=== PATIENT | female | born 1955 | race Caucasian/White ===

== ENCOUNTER 2023-12-30 11:20 | Outpatient (OUT) | payer MEDICARE, SELFPAY ==
--- NOTE | 2023-12-30 11:23 | MM_ITS ---
Patient Name: ALEXIA MILTON MR#: [id number] : 1955 Exam Date: 12/30/2023 Ordering Doctor: DR ROBERT OLVERA M.D. RADIOLOGY REPORT PROCEDURE: MM TOMOSYNTHESIS SCREENING BI COMPARISON: MG MAMM SCREEN TERRIE W CAD, 08/26/2020. MG MAMM SCREEN 3D TERRIE CAD, 12/10/2021. INDICATIONS: Screening Calculator Name NCI Breast Cancer Risk Assessment Tool 5 Year Breast Cancer Risk 1.20% Lifetime Breast Cancer Risk 4.40% Personal Breast Cancer No Personal Ovarian Cancer No Treatments None Family Cancers Grandmother-paternal with breast cancer at age 60; Father with esophegeal cancer at age 56. LOCATION: [facility] BREAST COMPOSITION: The breasts are almost entirely fatty. FINDINGS: DIAGNOSTIC CATEGORY 2--BENIGN FINDING. NO CHANGE FROM COMPARISON. Scattered benign-appearing nodules are present. Scattered benign-appearing calcifications are present. Scattered benign-appearing lymph nodes are present. RIGHT BREAST: No significant suspicious finding. LEFT BREAST: No significant suspicious finding. RECOMMENDATIONS: ROUTINE MAMMOGRAM AND CLINICAL EVALUATION IN 12 MONTHS. PLEASE NOTE: A NORMAL MAMMOGRAM DOES NOT EXCLUDE THE POSSIBILITY OF BREAST CANCER. A CLINICALLY SUSPICIOUS PALPABLE LUMP SHOULD BE BIOPSIED. Dictated by: Jhontaan Ravi MD on 12/30/2023 at 14:18 Approved by: Jhonatan Ravi MD on 12/30/2023 at 14:19
== END 2023-12-30 11:21 | disposition home or self-care (01) ==
LOC: MAMMO 11:20
PROVIDERS: PCP Internal Medicine; Visit Provider Internal Medicine
DX: Z12.31 Encounter for screening mammogram for malignant neoplasm of breast (principal); Z80.3 Family history of malignant neoplasm of breast; Z80.8 Family history of malignant neoplasm of other organs or systems
CPT/HCPCS: 77063; 77067

== ENCOUNTER 2025-04-17 09:53 | Outpatient (OUT) | payer MEDICARE, SELFPAY ==
--- OUTSIDE RECORDS SUMMARY | 2023-11-10 10:30 | XMS_ITS ---
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 * Medical History: Objective: * Vitals: Assessment: Plan: * Treatment: * Billing Information: * Visit Code: * Procedure Codes: * Electronic signature of Bishnu Garza DDS on 04/17/2025 at 09:57 AM EDT Sign off status: Pending * Provider: Dilan Garza DDS Date: 11/10/2023 Generated for Ludin glasgow/Mariya/eTcarleenitting on: 04/17/2025 09:57 AM EDT
--- OUTSIDE RECORDS SUMMARY | 2025-04-12 10:00 | XMS_ITS | Encounter Summary ---
Author Organization [facility] Address [address] [place] [address] Care Team Providers Care Electronic Scale Subassembler Name Role Phone Grayson Albert MD Primary Care Provider [phone] Grayson Albert MD Unavailable [phone] Meka Cardenas PATRICK Unavailable Reason for Referral * Rehabilitation - Outpatient (Routine) - Authorized Specialty Diagnoses / Procedures Referred By Contac t Referred To Contact Physical Therapy Diagnoses Acute pain of left shoulder Procedures ME OFFICE/OUTPATIENT NEW HIGH MDM 60 MINUTES Radha Main NP [address] [facility] [address] [place] [address] Phone: tel: fax: Corry Hutchinson PT Referral ID Status Reason Start Date Expiration Date Visits Requested Visits Authorized [id number] Authorized Specialty Services Required 04/12/2025 10/09/2025 10 10 * Consultation (Routine) - Closed Specialty Diagnoses / Procedures Referred By Contac t Referred To Contact Dermatology Diagnoses Screening for malignant neoplasm of skin Procedures ME OFFICE/OUTPATIENT NEW [facility] MDM 60 MINUTES Radha Main NP [address] [facility] [address] [place] [address] Phone: tel: fax: Terese Garcia MD [address] [place] [address] Phone: tel: fax: Referral ID Status Reason Start Date Expiration Date V isits Requested Visits Authorized [id number] Closed Specialty Services Required 04/12/2025 10/09/2025 1 1 Encounter Details Date Type Department Care Team (Late st Contact Info) Description 04/12/2025 10:00 AM EDT Office Visit [facility] [address] [facility] [address] [place] [address] Radha Main NP 112 [facility] [address] [place] [address] Medicare annual wellness visit, subsequent (Primary Dx); Anxiety disorder, unspecified type; Estrogen deficiency; Thyroid disorder screening; Vitamin D deficiency; Type 2 diabetes mellitus with other specified complication, with long-term current use of insulin (HCC); Hypercholesterolemia ; Encounter for other screening for malignant neoplasm of breast; Acute pain of left shoulder; Screening for malignant neoplasm of skin; Pulmonary emphysema, unspecified emphysema type (HCC); Arthritis of left knee; Lumbosacral spondylosis without myelopathy; Severe obesity (BMI 35.0-39.9) with comorbidity (CMS-HCC); Depression with anxiety; Menopausal and postmenopausal disorder Social History Tobacco Use Types Packs/Day Years Used Date Smoking Tobacco: Former Cigarettes 0.5 10 Q uit: 11/07/2022 Smokeless Tobacco: Never Tobacco Cessation:Counseling Given: Yes Alcohol Use Standard Drinks/Week Comments Never 0 (1 standard drink = 0.6 oz pur e alcohol) caffeine: Yes, coffee B1300 Health Literacy Answer Date Recor ded How often do you need to hav e someone help you when you read instructions, pamphlets, or other written material from your doctor or pharmacy? Never 04/11/2025 Humiliation, Afraid, Rape, and Kick questionnair e Answer Date Recorded Within the last year, have y ou been afraid of your partner or ex-partner? No 04/11/2025 Within the last year, have y ou been humiliated or emotionally abused in other ways by your partner or ex-partner? No Within the last year, have y ou been kicked, hit, slapped, or otherwise physically hurt by your partner or ex-partner? No 04/11/2025 Within the last year, have y ou been raped or forced to have any kind of sexual activity by your partner or ex-partner? No 04/11/2025 Social Connection and Isolation Panel [NHANES] A nswer Date Recorded In a typical week, how many times do you talk on the phone with family, friends, or neighbors? Twice a week 04/11/2025 How often do you get togethe r with friends or relatives? Patient declined 04/11/2025 Attends [employer] Services Not on file 04/11 Do you belong to any clubs o r organizations such as buddhism groups, unions, fraternal or athletic groups, or school groups? No 04/11/2025 How often do you attend meet ings of the clubs or organizations you belong to? Patient declined 04/11/2025 Are you , , di vorced, , never , or living with a partner? 04/11/2025 AUDIT-C Answer Date Recorded Q1: How often do you have a drink containing alcohol? Never 04/11/2025 Q2: How many drinks containi ng alcohol do you have on a typical day when you are drinking? Patient does not drink Q3: How often do you have si x or more drinks on one occasion? Never 04/11/2025 Overall Financial Resource Strain (CARDIA) Answe r Date Recorded How hard is it for you to pa y for the very basics like food, housing, medical care, and heating? Not very hard 04/11/2025 PHQ-2 Answer Date Recorded Patient Health Questionnaire-2 Score 4 04/12/2025 [facility] - Occupational Stress Questionnaire Answer Date Recorded Do you feel stress - tense, restless, nervous, or anxious, or unable to sleep at night because your mind is troubled all the time - these days? Only a little 04/11/2025 Exercise Vital Sign Answer Date Recorde d On average, how many days pe r week do you engage in moderate to strenuous exercise (like a brisk walk)? 4 days 04/11/2025 On average, how many minutes do you engage in exercise at this level? 30 min 04/11/2025 Hunger Vital Sign Answer Date Recorded Within the past 12 months, y ou worried that your food would run out before you got the money to buy more. Sometimes true Within the past 12 months, t he food you bought just didn't last and you didn't have money to get more. Never true 10/2024 PRAPARE - Transportation Answer Date Re corded In the past 12 months, has l ack of transportation kept you from medical appointments or from getting medications? No 10/2024 In the past 12 months, has l ack of transportation kept you from meetings, work, or from getting things needed for daily living? No 04/11/2025 Housing Stability Vital Sign Answer Antonio e Recorded In the last 12 months, was t here a time when you were not able to pay the mortgage or rent on time? No 12/30/2023 In the last 12 months, how many places have you lived? 1 12/30/2023 In the last 12 months, was t here a time when you did not have a steady place to sleep or slept in a jail (including now)? No 12/30/2023 Housing Stability Vital Sign Answer Antonio e Recorded In the last 12 months, was t here a time when you were not able to pay the mortgage or rent on time? No 04/11/2025 Number of Times Moved in the Last Year Not on fi le 04/11/2025 At any time in the past 12 m [facility], were you homeless or living in a jail (including now)? No 04/11/2025 Comments Unknown Sex and Gender Information Value Date Recorded Sex Assigned at Not on file Legal Sex Female 7:05 PM EDT Gender Identity Not on file Sexual Orientation Not on file documented as of this encounter Last Filed Vital Signs Vital Sign Reading Time Taken Comments Blood Pressure 122/72 04/12/2025 10:12 AM EDT Pulse 87 04/12/2025 10:12 AM EDT Temperature - - Respiratory Rate 16 04/12/2025 10:12 AM EDT Oxygen Saturation 98% 04/12/2025 10:12 AM EDT Inhaled Oxygen Concentration - - Weight 93.9 kg (207 lb) 04/12/2025 10:12 AM EDT Height 154.9 cm (5' 1 ) 04/12/2025 10:12 AM EDT Body Mass Index 39.11 04/12/2025 10:12 AM EDT documented in this encounter Functional Status * Over the past 2 weeks, how often have you been bothered by any of the following problems? Question Answer Date of Assessment Author Little interest or pleasure in doing things More than half the days 04/12/2025 10:02 AM IZZY SCOTT Feeling down, depressed, or hopeless More than half the days 04/12/2025 10:02 AM IZZY SCOTT Patient Health Questionnaire-2 Score 4 04/12/2025 10:02 AM IZZY SCOTT * Question Answer Date of Assessment Author Trouble falling or staying asleep, or sleeping too much More than half the days 04/12/2025 10:02 AM IZZY SCOTT Feeling tired or having little energy More than half the days 04/12/2025 10:02 AM IZZY SCOTT Poor appetite or overeating Several days 04/12/2025 10 :02 AM IZZY SCOTT Feeling bad about yourself - or that you are a failure or have let yourself or your family down Several days 04/12/2025 10:02 AM IZZY SCOTT Trouble concentrating on things, such as reading the newspaper or watching television More than half the days 04/12/2025 10:02 AM IZZY SCOTT Moving or speaking so slowly that other people could have noticed? Or the opposite - being so fidgety or restless that you have been moving around a lot more than usual. Several days 04/12/2025 10:02 AM IZZY SCOTT Thoughts that you would be better off or hurting yourself in some way Not at all 04/12/2025 10:02 AM IZZY SCOTT Patient Health Questionnaire-9 Score 13 04/12/2025 10:02 AM IZZY SCOTT * If you checked off any problems on this questionnaire so far, Question Answer Date of Assessment Author How difficult have these problems made it for you to do your work, take care of things at home, or get along with other people? Somewhat difficult 04/12/2025 10:02 AM IZZY SCOTT documented as of this encounter Patient Instructions * Patient Instructions* Radha Main NP - 04/12/2025 10:00 AM EDT Referral to Dermatology for a preventative skin check. Referral to therapy for left shoulder pain. Celexa increased today. documented in this encounter Progress Notes * Radha Main NP - 04/12/2025 10:00 AM EDT Images from the original note were not included. Subjective : Chief Complaint: Jovanna Aceves is an 69 y.o. female here for an annual wellness visit. I have reviewed and reconciled the history and medication list with the patient today. Current Outpatient Medications Medication Sig Dispense Refill albuterol HFA (Ventolin HFA) 90 mcg/act inhaler Inhale 2 puffs every 4 (four) hours if needed for wheezing 17 g 11 aspirin 81 MG EC tablet Take 81 mg by mouth in the morning. Fsdlhkw-Qiqcjikiqaa-Jaeondlczz (Breztri Aerosphere) 160-9-4.8 MCG/ACT aerosol Inhale 2 puffs in themorning and 2 puffs before bedtime. 10.7 g 11 citalopram (CeleXA) 20 MG tablet Take 1 tablet (20 mg) by mouth Daily 30 tablet 1 glucose blood (Accu-Chek Zoe Plus) test strip 1 each by Other route in the morning and 1 each in the evening and 1 each before bedtime. 300 each 2 insulin aspart (NovoLOG FLEXPEN) 100 UNIT/ML pen Inject 15 Units under the skin in the morning and 15 Units in the evening. Inject with meals. Per sliding scale. 27 mL 3 insulin glargine (Toujeo Max Solostar, 2 unit dial,) 300 UNIT/ML injection Inject 45 Units under the skin at bedtime Pt is to have 44 units instead of 45 units as this is a 2 unit dial. The computer sytem will not allow me to correct 6 mL 12 rosuvastatin (Crestor) 20 MG tablet TAKE 1 TABLET BY MOUTH EVERY DAY 100 tablet 3 tiZANidine (Zanaflex) 4 MG tablet Take 1 tablet (4 mg) by mouth in the morning and 1 tablet (4 mg) in the evening and 1 tablet (4 mg) before bedtime. 30 tablet 1 No current facility-administered medications for this visit. Review of Systems Constitutional: Negative. HENT: Negative. Eyes: Negative. Respiratory: Negative. Cardiovascular: Negative. Gastrointestinal: Negative. Genitourinary: Negative. Musculoskeletal: Positive for arthralgias (left shoulder) and joint swelling. Skin: She has multiple age spots and other spots she wonders about. Asking for a dermatology consult today. Neurological: Negative. Psychiatric/Behavioral: The patient is nervous/anxious. Hematological: Negative. Endocrine: Negative. Allergic/Immunologic: Negative. List of current healthcare providers: Patient Care Team: Grayson Albert MD as PCP - General (Internal Medicine) Grayson Albert MD as PCP - ACO Hira Cardenas LPN Medicare Annual Visit Over the past 2 weeks, how often have you been bothered by any of the following problems? Little interest or pleasure in doing things: More than half the days Feeling down, depressed, or hopeless: More than half the days Patient Health Questionnaire-2 Score: 4 Over the past 2 weeks, how often have you been bothered by any of the following problems? Trouble falling or staying asleep, or sleeping too much: More than half the days Feeling tired or having little energy: More than half the days Poor appetite or overeating: Several days Feeling bad about yourself - or that you are a failure or have let yourself or your family down: Several days Trouble concentrating on things, such as reading the newspaper or watching television: More than half the days Moving or speaking so slowly that other people could have noticed? Or the opposite - being so fidgety or restless that you have been moving around a lot more than usual.: Several days Thoughts that you would be better off or hurting yourself in some way: Not at all Patient Health Questionnaire-9 Score: 13 Merchant Fall Risk History of Falling, Immediate or Within 3 Months: No Secondary Diagnosis: (Patient-Rptd) (P) No Intravenous Therapy/Heparin Lock: (Patient-Rptd) (P) No Health Risk Assessment Form Do you need help eating, bathing, using the toilet, dressing, or getting around your home?: No Can you prepare your own meals?: Yes Can you do your own housework without help?: Yes Can you shop for groceries or clothes without help?: Yes Do you exercise for about 20 minutes 3 or more days a week?: Yes How confident are you that you can control and manage most of your health problems?: Very confident Can you mange your money, credit cards and accounts, pay bills and taxes?: Yes Cognitive Screening Three Word Registration: Banana, [place], Chair Clock Drawing: Normal Clock - 2 Three Word Recall: All 3 words correct - 3 Total Score (0-5 Points): 5 Pain Assessment Pain Score: 5 - Moderate pain Advance Care Planning Do you have a living will?: Yes Do you have a medical power of web site designer?: Yes Who is your medical power of web site designer?: Jacky Ariza Objective : BP 122/72 Pulse 87 Resp 16 Ht 5' 1 Wt 207 lb SpO2 98% BMI 39.11 kg/m?? No results found. Physical Exam Vitals reviewed. Constitutional: Appearance: Normal appearance. HENT: Head: Normocephalic and atraumatic. Right Ear: Tympanic membrane, ear canal and external ear normal. Left Ear: Tympanic membrane, ear canal and external ear normal. Nose: Nose normal. Mouth/Throat: Mouth: Mucous membranes are moist. Pharynx: Oropharynx is clear. Eyes: Extraocular Movements: Extraocular movements intact. Conjunctiva/sclera: Conjunctivae normal. Pupils: Pupils are equal, round, and reactive to light. Cardiovascular: Rate and Rhythm: Normal rate and regular rhythm. Pulses: Normal pulses. Heart sounds: Normal heart sounds. Pulmonary: Effort: Pulmonary effort is normal. Breath sounds: Normal breath sounds. Abdominal: General: Bowel sounds are normal. Musculoskeletal: General: Tenderness (left shoulder tenderness, mild swelling, decreased ROM) present. Cervical back: Normal range of motion and neck supple. Skin: General: Skin is warm and dry. Comments: Scattered age spots over body Neurological: General: No focal deficit present. Mental Status: She is alert and oriented to person, place, and time. Psychiatric: Mood and Affect: Mood normal. Behavior: Behavior normal. Judgment: Judgment normal. Comments: Feels anxious, crying for no reason Assessment/Plan : The following health maintenance schedule was reviewed with the patient and provided in printed form in the after visit summary: Health Maintenance Topic Date Due Pneumococcal Vaccine: 65+ Years (1 of 2 - PCV) Never done Colorectal Cancer Screening 09/26/2022 Mammogram 12/29/2024 Diabetes: Urine Protein Screening 03/15/2025 Medicare Annual Wellness (AWV) 03/22/2025 Influenza Vaccine (1) 04/09/2025 Diabetes: Hemoglobin A1C 07/12/2025 Diabetes: Retinopathy Screening 05/23/2026 Advance Care Planning Orders Placed This Encounter Procedures Bilateral screening mammogram with tomosynthesis [place] Standing Status: Future Expected Date: 04/12/2025 Expiration Date: 06/12/2026 Reason for exam:: screening for breast cancer DEXA bone density Constantin Standing Status: Future Expected Date: 04/12/2025 Expiration Date: 04/12/2026 Reason for exam:: Screening XR shoulder 2+ views left Standing Status: Future Expected Date: 04/12/2025 Expiration Date: 04/12/2026 Reason for exam:: left shoulder pain, limited ROM dt pain Comprehensive metabolic panel Standing Status: Future Number of Occurrences: 1 Expected Date: 04/12/2025 Expiration Date: 04/12/2026 Print requisition?: No CBC and differential Standing Status: Future Number of Occurrences: 1 Expected Date: 04/12/2025 Expiration Date: 04/12/2026 Print requisition?: No Lipid panel Standing Status: Future Number of Occurrences: 1 Expected Date: 04/12/2025 Expiration Date: 04/12/2026 Microalbumin / creatinine urine ratio Standing Status: Future Expected Date: 04/12/2025 Expiration Date: 04/12/2026 Print requisition?: No Vitamin D 25 hydroxy Total Standing Status: Future Number of Occurrences: 1 Expected Date: 04/12/2025 Expiration Date: 04/12/2026 Print requisition?: No TSH Standing Status: Future Number of Occurrences: 1 Expected Date: 04/12/2025 Expiration Date: 04/12/2026 Print requisition?: No Ambulatory referral to Dermatology Patient would like a skin check, family history of skin cancer. Standing Status: Future Expected Date: 04/12/2025 Expiration Date: 10/10/2025 Referral Priority: Routine Referral Type: Consultation Referral Reason: Specialty Services Required Referred to Provider: Terese Garcia MD Requested Specialty: Dermatology Number of Visits Requested: 1 Ambulatory referral to Physical Therapy Left shoulder pain Standing Status: Future Expected Date: 04/12/2025 Expiration Date: 10/10/2025 Referral Priority: Routine Referral Type: Rehabilitation - Outpatient Referral Reason: Specialty Services Required Referred to Provider: Corry Hutchinson PT Requested Specialty: Physical Therapy Number of Visits Requested: 1 POCT glycosylated hemoglobin (Hb A1C) docked device 1. Medicare annual wellness visit, subsequent (Primary) This pt presents for her medicare wellness visit today. 2. Anxiety disorder, unspecified type The pt reports today that she has been having episodes of crying for no reason and feels anxious daily. Discussed increasing her citalopram and she is in agreement with this plan. Will have her follow up in 1 month to ensure effectiveness of the medication increase. - citalopram (CeleXA) 20 MG tablet; Take 1 tablet (20 mg) by mouth Daily Dispense: 30 tablet; Refill: 1 3. Estrogen deficiency The pt states she was du to have a dexa previously but was not able to get it done. Dexa scan ordered today. - DEXA bone density; Future 4. Thyroid disorder screening 03/15/24 TSH W/REFLEX TO FT4 0.40 - 4.50 mIU/L 1.18 - TSH; Future - TSH 5. Vitamin D deficiency - Comprehensive metabolic panel; Future - CBC and differential; Future - Vitamin D 25 hydroxy Total; Future - Comprehensive metabolic panel - CBC and differential - Vitamin D 25 hydroxy Total 6. Type 2 diabetes mellitus with other specified complication, with long-term current use of insulin (HCC) Her A1c results are discussed at her visit today. Previous was at 7.5. Continues current medication, no changes. Insulin aspart continues as ordered, Toujeo insulin continues as ordered. 04/12/25 Hemoglobin A1C 6.9 - Comprehensive metabolic panel; Future - CBC and differential; Future - Microalbumin / creatinine urine ratio; Future - POCT glycosylated hemoglobin (Hb A1C) docked device - Comprehensive metabolic panel - CBC and differential 7. Hypercholesterolemia Rosuvastatin continues as ordered 03/15/24 CHOLESTEROL, TOTAL <200 mg/dL 172 277 High HDL CHOLESTEROL > OR = 50 mg/dL 56 63 TRIGLYCERIDES <150 mg/dL 113 98 LDL CHOLESTEROL mg/dL (calc) 95 192 High CM Comment: Reference range: <100 Desirable range <100 mg/dL for primary prevention; <70 mg/dL for patients with CHD or diabetic patients with > or = 2 CHD risk factors. LDL-C is now calculated using the Alphonso calculation, which is a validated novel method providing better accuracy than the Friedewald equation in the estimation of LDL-C. Ashwin HERNANDEZ et al. SARAH. 2013;310(19): 3317-3181 (http://Yelp.MetaIntell/faq/HJU351) CHOL/HDLC RATIO <5.0 (calc) 3.1 4.4 NON HDL CHOLESTEROL <130 mg/dL (calc) 116 - Comprehensive metabolic panel; Future - CBC and differential; Future - Lipid panel; Future - Comprehensive metabolic panel - CBC and differential - Lipid panel 8. Encounter for other screening for malignant neoplasm of breast Mammogram order sent. - Bilateral screening mammogram with tomosynthesis; Future 9. Acute pain of left shoulder Discussed getting an xray of the left shoulder dt increased pain and discomfort, decreased ROM. Shereports that she is in agreement with this plan. Referral to therapy sent today. - XR shoulder 2+ views left; Future - Ambulatory referral to Physical Therapy; Future Tizanidine continues prn 10. Screening for malignant neoplasm of skin - Ambulatory referral to Dermatology; Future 11. Pulmonary emphysema, unspecified emphysema type (HCC) Stable. albuterol HFA (Ventolin HFA) 90 mcg/act inhaler 2 puff, Every 4 hours PRN Wbprvuz-Ukwmttoucvt-Ukwqqnmstw (Breztri Aerosphere) 160-9-4.8 MCG/ACT aerosol 12. Arthritis of left knee Stable 13. Lumbosacral spondylosis without myelopathy Stable 14. Severe obesity (BMI 35.0-39.9) with comorbidity (CMS-HCC) Stable 15. Depression with anxiety Celexa increased tod 20 mg daily today. 16. Menopausal and postmenopausal disorder Stable.Continue Celexa as ordered. Electronically signed by Radha Main NP on April 12, 2025 documented in this encounter Plan of Treatment Upcoming Encounters Date Type Department Care Team (Late st Contact Info) Description 04/25/2025 11:30 AM EDT Evaluation [facility] [address] [facility] [address] [place] [id number] Jasper Corry, PT 04/27/2025 10:30 AM EDT Treatment [facility] [address] [place] [address] Pedro Turcios, SHOE PULLER 04/30/2025 10:30 AM EDT Treatment [facility] [address] [place] [address] Pedro Turcios, SHOE PULLER 05/02/2025 10:30 AM EDT Treatment [facility] [address] [place] [address] Pedro Turcios, SHOE PULLER 05/17/2025 10:00 AM EDT Office Visit [facility] [address] [place] [address] Radha Main, ERROL [address] [place] [address] Scheduled Orders Name Type Priority Associated Diagnoses Orde r Schedule Bilateral screening mammogram with tomosynthesis Imaging Routine Encounter for other screening for malignant neoplasm of breast Expected: 04/12/2025, Expires: 06/12/2026 DEXA bone density Imaging Routine Estrogen deficiency Expected: 04/12/2025 (Approximate), Expires: 04/12/2026 Comprehensive metabolic panel Lab Routine Vitamin D deficiency Type 2 diabetes mellitus with other specified complication, with long-term current use of insulin (HCC) Hypercholesterolemia Expected: 04/12/2025 (Approximate), Expires: 04/12/2026 CBC and differential Lab Routine Vitamin D deficiency Type 2 diabetes mellitus with other specified complication, with long-term current use of insulin (HCC) Hypercholesterolemia Expected: 04/12/2025 (Approximate), Expires: 04/12/2026 Lipid panel Lab Routine Hypercholesterolemia Expected: 04/12/2025 (Approximate), Expires: 04/12/2026 Microalbumin / creatinine urine ratio Lab Routine Type 2 diabetes mellitus with other specified complication, with long-term current use of insulin (HCC) Expected: 04/12/2025 (Approximate), Expires: 04/12/2026 Vitamin D 25 hydroxy Total Lab Routine Vitamin D deficiency Expected: 04/12/2025 (Approximate), Expires: 04/12/2026 XR shoulder 2+ views left Imaging Routine Acute pain of left shoulder Expected: 04/12/2025 (Approximate), Expires: 04/12/2026 TSH Lab Routine Thyroid disorder screening Expected: 04/12/2025 (Approximate), Expires: 04/12/2026 Scheduled Referrals Name Type Priority Associated Diagnoses Order Schedule Ambulatory referral to Dermatology Outpatient Referral Routine Screening for malignant neoplasm of skin Expected: 04/12/2025 (Approximate), Expires: 10/10/2025 Ambulatory referral to Physical Therapy Outpatient Referral Routine Acute pain of left shoulder Expected: 04/12/2025 (Approximate), Expires: 10/10/2025 documented as of this encounter Procedures Procedure Name Priority Date/Time Associated Diagnosis Comments POCT GLYCOSYLATED HEMOGLOBIN (HGB A1C) Routine 04/12/2025 10:24 AM EDT Type 2 diabetes mellitus with other specified complication, with long-term current use of insulin (HCC) documented in this encounter Results * (ABNORMAL) POCT glycosylated hemoglobin (Hb A1C) docked device (04/12/2025 10:24 AM EDT) Hemoglobin A1C 6.9 Blood Venous blood specimen / Unknown 04/12/2025 10:24 AM EDT Radha Main NP POINT OF CARE TEST ENTER/EDIT OR DERABLES Final Result documented in this encounter Visit Diagnoses Diagnosis Medicare annual wellness visit, subsequent- Primary Anxiety disorder, unspecified type Estrogen deficiency Other ovarian failure Thyroid disorder screening Screening for thyroid disorder Vitamin D deficiency Type 2 diabetes mellitus with other specified complication, with long-term current use of insulin (HCC) Hypercholesterolemia Pure hypercholesterolemia Encounter for other screening for malignant neoplasm of breast Acute pain of left shoulder Screening for malignant neoplasm of skin Screening for malignant neoplasm of the skin Pulmonary emphysema, unspecified emphysema type (HCC) Arthritis of left knee Lumbosacral spondylosis without myelopathy Severe obesity (BMI 35.0-39.9) with comorbidity ([facility]) Depression with anxiety Dysthymic disorder Menopausal and postmenopausal disorder Unspecified menopausal and postmenopausal disorder documented in this encounter Additional Health Concerns Assessment Noted Time PHQ-9 Depression Total Score: 13 025 10:02 AM EDT documented as of this encounter Care Teams Electronic Scale Subassembler Relationship Specialty Start Date End Date Grayson Albert MD [address] [facility] [address] [place] [address] PCP - General Internal Medicine 01/07/23 Grayson Albert MD [address] [facility] [address] [place] [address] PCP - ACO Reach 10/08/23 Meka Cardenas LPN [address] [facility] [address] [place] [address] 10/31/24 documented as of this encounter
--- OUTSIDE RECORDS SUMMARY | 2025-04-17 09:57 | XMS_ITS | Encounter Summary ---
Author Organization [facility] Address [address] [facility] [place] [address] Care Team Providers Care Mill Control Operator Name Role Phone Grayson Albert MD Primary Care Provider [phone] Grayson Albert MD Unavailable [phone] Wednesday, Yola CONTACT LENS MOLDER Unavailable [phone] Arceo RN Unavailable [phone] [place] CONTACT LENS MOLDER Unavailable Encounter Details Date Type Department Care Team (Late st Contact Info) Description 02/24/2024 Abstract [facility] [place] [facility] [address] [facility] [address] [place] [id number] Grayson Albert MD [address] [facility] [address] [place], [place] [id number] Social History Tobacco Use Types Packs/Day Years Used Date Smoking Tobacco: Former Cigarettes Q uit: 11/07/2022 Smokeless Tobacco: Never Alcohol Use Standard Drinks/Week Comments Never 0 (1 standard drink = 0.6 oz pur e alcohol) caffeine: Yes, coffee B1300 Health Literacy Answer Date Recor ded How often do you need to hav e someone help you when you read instructions, pamphlets, or other written material from your doctor or pharmacy? Never 02/21/2024 Humiliation, Afraid, Rape, and Kick questionnair e Answer Date Recorded Within the last year, have y ou been afraid of your partner or ex-partner? No 02/21/2024 Within the last year, have y ou been humiliated or emotionally abused in other ways by your partner or ex-partner? No Within the last year, have y ou been kicked, hit, slapped, or otherwise physically hurt by your partner or ex-partner? No 02/21/2024 Within the last year, have y ou been raped or forced to have any kind of sexual activity by your partner or ex-partner? No 02/21/2024 Social Connection and Isolat ion Panel [NHANES] Answer Date Recorded In a typical week, how many times do you talk on the phone with family, friends, or neighbors? More than three times a week 02/21/2024 How often do you get togethe r with friends or relatives? Once a week 02/21/2024 How often do you attend chur or presybeterian services? More than 4 times per year 02/21/2024 Do you belong to any clubs o r organizations such as temple groups, unions, fraternal or athletic groups, or school groups? Yes 02/21/2024 How often do you attend meet ings of the clubs or organizations you belong to? More than 4 times per year 02/21/2024 Are you , , di vorced, , never , or living with a partner? 02/21/2024 AUDIT-C Answer Date Recorded Q1: How often do you have a drink containing alcohol? Never 02/21/2024 Q2: How many drinks containi ng alcohol do you have on a typical day when you are drinking? Patient does not drink Q3: How often do you have si x or more drinks on one occasion? Never 02/21/2024 Overall Financial Resource Strain (CARDIA) Answe r Date Recorded How hard is it for you to pa y for the very basics like food, housing, medical care, and heating? Somewhat hard 02/21/2024 [facility] [place] of Occupat ional Health - Occupational Stress Questionnaire Answer Date Recorded Do you feel stress - tense, restless, nervous, or anxious, or unable to sleep at night because your mind is troubled all the time - these days? Not at all 02/21/2024 Exercise Vital Sign Answer Date Recorde d On average, how many days pe r week do you engage in moderate to strenuous exercise (like a brisk walk)? 0 days 02/21/2024 On average, how many minutes do you engage in exercise at this level? 0 min 02/21/2024 Hunger Vital Sign Answer Date Recorded Within the past 12 months, y ou worried that your food would run out before you got the money to buy more. Never true 02/21/20 24 Within the past 12 months, t he food you bought just didn't last and you didn't have money to get more. Never true 02/21/2024 PRAPARE - Transportation Answer Date Re corded In the past 12 months, has l ack of transportation kept you from medical appointments or from getting medications? No 02/06 In the past 12 months, has l ack of transportation kept you from meetings, work, or from getting things needed for daily living? No 02/21/2024 Housing Stability Vital Sign Answer Antonio e [...] place to sleep or slept in a alf (including now)? No 12/30/2023 Housing Stability Vital Sign Answer Antonio e Recorded In the last 12 months, was t here a time when you were not able to pay the mortgage or rent on time? No 02/21/2024 In the past 12 months, how m any times have you moved where you were living? 1 02/21/2024 At any time in the past 12 m [facility], were you homeless or living in a alf (including now)? No 02/21/2024 Comments Unknown Sex and Gender Information Value Date Recorded Sex Assigned at Not on file Legal Sex Female 7:05 PM EDT Gender Identity Not on file Sexual Orientation Not on file documented as of this encounter Functional Status * Little interest or pleasure in doing things Answer Date of Assessment Author Several days 02/24/2024 10:17 AM Samantha Bui * Feeling tired or having little energy Answer Date of Assessment Author Several days 02/24/2024 10:17 AM Samantha Bui * Poor appetite or overeating Answer Date of Assessment Author Not at all 02/24/2024 10:17 AM EDT Samantha Hernandez * Feeling bad about yourself - or that you are a failure or have let yourself or your family down Answer Date of Assessment Author Not at all 02/24/2024 10:17 AM EDT Samantha Hernandez * Trouble concentrating on things, such as reading the newspaper or watching television Answer Date of Assessment Author Not at all 02/24/2024 10:17 AM EDT Samantha Hernandez * Moving or speaking so slowly that other people could have noticed? Or the opposite - being so fidgety or restless that you have been moving around a lot more than usual. Answer Date of Assessment Author Not at all 02/24/2024 10:17 AM EDT Samantha Hernandez * Thoughts that you would be better off or hurting yourself in some way Answer Date of Assessment Author Not at all 02/24/2024 10:17 AM EDT Samantha Hernandez documented as of this encounter Plan of Treatment Upcoming Encounters Date Type Department Care Team (Late st Contact Info) Description 04/25/2025 11:30 AM EDT Evaluation [facility] [place] [facility] [address] [place] [address] Corry Hutchinson, PT 04/27/2025 10:30 AM EDT Treatment [facility] [place] [facility] [address] [place] [address] Pedro Turcios, BEAM BUILDER 04/30/2025 10:30 AM EDT Treatment [facility] [place] [facility] [address] [place] [address] Pedro Turcios, BEAM BUILDER 05/02/2025 10:30 AM EDT Treatment [facility] [place] [facility] [address] [place] [address] Pedro Turcios, BEAM BUILDER 05/17/2025 10:00 AM EDT Office Visit [facility] [place] [facility] [address] [place] [address] Radha Main, ICE PLATFORM SUPERVISOR [address] [place] [address] documented as of this encounter Visit Diagnoses Not on filedocumented in this encounter Care Teams Mill Control Operator Relationship Specialty Start Date End Date Grayson Albert MD [address] [place] [address] PCP - General Internal Medicine 01/07/23 Grayson Albert MD [address] [place] [address] PCP - ACO Reach 10/08/23WednesdayYola LPN [address] [place] [address] Licensed Practical Nurse Family Medicine 02/21/24 09/15/24 Ct Arceo, FÉLIX [address] [place] [address] Licensed Practical Nurse Family Medicine 09/15/24 10/31/24 Meka Cardenas LPN [address] [place] [address] 10/31/24 documented as of this encounter
--- OUTSIDE RECORDS SUMMARY | 2025-04-17 09:57 | XMS_ITS | Encounter Summary ---
Author Organization [facility] Address [address] [facility] [place] [address] Care Team Providers Care Edge Brusher Name Role Phone Grayson Albert MD Primary Care Provider Grayson Albert MD Unavailable [phone] Wednesday, Yola ASSISTANT GOLF COURSE SUPERINTENDENT Unavailable [phone] Arceo RN Unavailable [phone] [place] ASSISTANT GOLF COURSE SUPERINTENDENT Unavailable Encounter Details Date Type Department Care Team (Late st Contact Info) Description 03/23/2024 Abstract [facility] [place] [facility] [address] [facility] [address] [place] [id number] Grayson Albert MD [address] [facility] [address] [place], [place] [id number] Social History Tobacco Use Types Packs/Day Years Used Date Smoking Tobacco: Every Day Cigarettes 0.5 10 Smokeless Tobacco: Never Alcohol Use Standard Drinks/Week [...] How often do you attend chur or oriental orthodox services? More than 4 times per year 02/21/2024 Do you belong to any clubs o r organizations such as denominational groups, unions, fraternal or athletic groups, or [...] medical care, and heating? Somewhat hard 02/21/2024 [facility] [place] of Occupat ional Health - Occupational Stress [...] place to sleep or slept in a halfway (including now)? No 12/30/2023 Housing Stability Vital Sign Answer Antonio e Recorded In the last 12 months, was t here a time when you were not able to pay the mortgage or rent on time? No 02/21/2024 In the past 12 months, how m any times have you moved where you were living? 1 02/21/2024 At any time in the past 12 m [facility], were you homeless or living in a halfway (including now)? No 02/21/2024 Comments Unknown Sex and Gender Information Value Date Recorded Sex Assigned at Not on file Legal Sex Female 7:05 PM EDT Gender Identity Not on file Sexual Orientation Not on file documented as of this encounter Plan of Treatment Upcoming Encounters Date Type Department Care Team (Late st Contact Info) Description 04/25/2025 11:30 AM EDT Evaluation [facility] [place] [facility] [address] [facility] [address] [place] [address] Corry Hutchinson, RAKAN 04/27/2025 10:30 AM EDT Treatment [facility] [place] [facility] [address] [place] [address] AndraePedro eagle, PROCESS ASSISTANT 04/30/2025 10:30 AM EDT Treatment [facility] [place] [facility] [address] [place] [address] AndraePedro eagle, PROCESS ASSISTANT 05/02/2025 10:30 AM EDT Treatment [facility] [place] [facility] [address] [place] [address] AndraePedro eagle, PROCESS ASSISTANT 05/17/2025 10:00 AM EDT Office Visit [facility] [place] [facility] [address] [place] [address] Radha Main, COMMISSARY MANAGER [address] [place] [address] documented as of this encounter Visit Diagnoses Not on filedocumented in this encounter Care Teams Edge Brusher Relationship Specialty Start Date End Date Grayson Albert MD [address] [place] [address] PCP - General Internal Medicine 01/07/23 Grayson Albert MD [address] [place] [address] PCP - ACO Reach 10/08/23WedKraigYola coe LPN [address] [place] [address] Licensed Practical Nurse Family Medicine 02/21/24 09/15/24 Ct Arceo, FÉLIX [address] [place] [address] Licensed Practical Nurse Family Medicine 09/15/24 10/31/24 Meka Cardenas LPN [address] [place] [address] 10/31/24 documented as of this encounter
--- OUTSIDE RECORDS SUMMARY | 2025-04-17 09:57 | XMS_ITS | Encounter Summary ---
Author Organization [facility] Address [address] [facility] [place] [address] Care Team Providers Care Building Performance Consultant Name Role Phone Grayson Albert MD Primary Care Provider [phone] Grayson Albert MD Unavailable [phone] Wednesday, Yola STRIPPER OPAQUER Unavailable [phone] Arceo RN Unavailable [facility] Meka STRIPPER OPAQUER Unavailable Encounter Details Date Type Department Care Team (Late st Contact Info) Description 06/07/2023 Abstract [facility] [place] [facility] [address] [facility] [address] [place] [address] Grayson Albert MD [address] [facility] 110 [place], [place] [phone] Social History Tobacco Use Types Packs/Day Years Used Date Smoking Tobacco: Former Cigarettes Q uit: 11/07/2022 Smokeless Tobacco: Never Alcohol Use Standard Drinks/Week Comments Never 0 (1 standard drink = 0.6 oz pur e alcohol) caffeine: Yes, coffee Comments Unknown Sex and Gender Information Value Date Recorded Sex Assigned at Not on file Legal Sex Female 7:05 PM EDT Gender Identity Not on file Sexual Orientation Not on file documented as of this encounter Plan of Treatment Upcoming Encounters Date Type Department Care Team (Late st Contact Info) Description 04/25/2025 11:30 AM EDT Evaluation [facility] [place] [facility] [address] [facility] [address] [place] [address] Corry Hutchinson, PT 04/27/2025 10:30 AM EDT Treatment [facility] [place] [facility] [address] [place] [address] Karolina Pedro, VENDING MANAGER 04/30/2025 10:30 AM EDT Treatment [facility] [place] [facility] [address] [place] [address] Pedro Turcios, VENDING MANAGER 05/02/2025 10:30 AM EDT Treatment [facility] [place] [facility] [address] [place] [address] Pedro Turcios, VENDING MANAGER 05/17/2025 10:00 AM EDT Office Visit [facility] [place] [facility] [address] [place] [address] Radha Main, CERAMICS TECHNICIAN [address] [place] [address] documented as of this encounter Visit Diagnoses Not on filedocumented in this encounter Care Teams Building Performance Consultant Relationship Specialty Start Date End Date Grayson Albetr MD [address] [place] [address] PCP - General Internal Medicine 01/07/23 Grayson Albert MD [address] [place] [address] PCP - ACO Reach 10/08/23WednesdayYola LPN [address] [place] [address] Licensed Practical Nurse Family Medicine 02/21/24 09/15/24 Ct Arceo, FÉLIX [address] [place] [address] Licensed Practical Nurse Family Medicine 09/15/24 10/31/24 Meka Cardenas LPN [address] [place] [address] 10/31/24 documented as of this encounter
--- OUTSIDE RECORDS SUMMARY | 2025-04-17 09:57 | XMS_ITS | Encounter Summary ---
Author Organization [facility] Address [address] [place] [address] Care Team Providers Care Wheel Shop Supervisor Name Role Phone Grayson Albert MD Primary Care Provider Grayson Albert MD Unavailable [phone] Wednesday, Yola GENERAL SUPERVISOR Unavailable [phone] Arceo RN Unavailable [phone] [place], Meka GENERAL SUPERVISOR Unavailable Encounter Details Date Type Department Care Team (Late st Contact Info) Description 12/30/2023 Clinisync Result Encounter [facility] External Department Unsolicited Grayson Albert MD 112 [facility] 110 [place] [address] Social History Tobacco Use Types Packs/Day Years Used Date Smoking Tobacco: Former Cigarettes Q uit: 11/07/2022 Smokeless Tobacco: Never Alcohol Use Standard Drinks/Week Comments Never 0 (1 standard drink = 0.6 oz pur e alcohol) caffeine: Yes, coffee Social Connection and Isolat ion Panel [NHANES] Answer Date Recorded In a typical week, how many times do you talk on the phone with family, friends, or neighbors? More than three times a week 12/30/2023 How often do you get togethe r with friends or relatives? Once a week 12/30/2023 How often do you attend [facility] or yazidi services? More than 4 times per year 12/30/2023 Do you belong to any clubs o r organizations such as evangelical groups, unions, fraternal or athletic groups, or school groups? Yes 12/30/2023 How often do you attend meet ings of the clubs or organizations you belong to? Never 12/30/2023 Are you , , di vorced, , never , or living with a partner? 12/30/2023 AUDIT-C Answer Date Recorded Q1: How often do you have a drink containing alcohol? Never 12/30/2023 Q2: How many drinks containi ng alcohol do you have on a typical day when you are drinking? Patient does not drink Q3: How often do you have si x or more drinks on one occasion? Never 12/30/2023 Overall Financial Resource Strain (CARDIA) Answe r Date Recorded How hard is it for you to pa y for the very basics like food, housing, medical care, and heating? Hard 12/30/2023 [facility] - Occupational Stress Questionnaire Answer Date Recorded Do you feel stress - tense, restless, nervous, or anxious, or unable to sleep at night because your mind is troubled all the time - these days? Not at all 12/30/2023 Exercise Vital Sign Answer Date Recorde d On average, how many days pe r week do you engage in moderate to strenuous exercise (like a brisk walk)? Patient declined On average, how many minutes do you engage in exercise at this level? 20 min 12/30/2023 Hunger Vital Sign Answer Date Recorded Within the past 12 months, y ou worried that your food would run out before you got the money to buy more. Never true 12/30/19 24 Within the past 12 months, t he food you bought just didn't last and you didn't have money to get more. Never true 12/30/2023 PRAPARE - Transportation Answer Date Re corded In the past 12 months, has l ack of transportation kept you from medical appointments or from getting medications? No 12/08 In the past 12 months, has l ack of transportation kept you from meetings, work, or from getting things needed for daily living? No 12/30/2023 Housing Stability Vital Sign Answer [...] place to sleep or slept in a care home (including now)? No 12/30/2023 Comments Unknown Sex and Gender Information Value Date Recorded Sex Assigned at Not on file Legal Sex Female 7:05 PM EDT Gender Identity Not on file Sexual Orientation Not on file documented as of this encounter Functional Status * Audit-C Score Answer Date of Assessment Author 0 12/30/2023 12:30 PM EDT Mychart, Generic * Q1: How often do you have a drink containing alcohol? Answer Date of Assessment Author Never 12/30/2023 12:30 PM EDT Mychart, Generic * Q2: How many drinks containing alcohol do you have on a typical day when you are drinking? Answer Date of Assessment Author Patient does not drink 12/30/2023 12:30 PM EDT M ychart, Generic * Q3: How often do you have six or more drinks on one occasion? Answer Date of Assessment Author Never 12/30/2023 12:30 PM EDT Mychart, Generic documented as of this encounter Plan of Treatment Upcoming Encounters Date Type Department Care Team (Late st Contact Info) Description 04/25/2025 11:30 AM EDT Evaluation [facility] [place] [facility] [address] [place] [address] Corry Hutchinson, PT 04/27/2025 10:30 AM EDT Treatment [facility] [place] [facility] [address] [place] [address] Pedro Turcios, BIOANALYST 04/30/2025 10:30 AM EDT Treatment [facility] [place] [facility] [address] [place] [address] Pedro Turcios, BIOANALYST 05/02/2025 10:30 AM EDT Treatment [facility] [place] [facility] [address] [place] [address] Pedro Turcios, BIOANALYST 05/17/2025 10:00 AM EDT Office Visit [facility] [place] [facility] 112 [facility] 110 [place] [address] Radha Main, CHECKMAN 112 [facility] 110 [place] [address] documented as of this encounter Procedures Procedure Name Priority Date/Time Associated Diagnosis Comments MM TOMOSYNTHESIS SCREENING BI 12/30/2023 2:20 PM EDT documented in this encounter Results * MM TOMOSYNTHESIS SCREENING BI (12/30/2023 2:20 PM EDT) Anatomical Region Laterality Modality Other 12/30/2023 2:20 PM EDT Narrative 12/30/2023 2:21 PM EDT The [address] [address] Mammography Report Signed Patient: Alexia Aceves MR#: [id number] : 1955 Acct:[id number] Age/Sex: 68 / F ADM Date: 12/30/23 Loc: MAMMO Attending Dr: GRAYSON ALBERT Ordering Physician: GRAYSON ALBERT Results: Date of Service: 12/30/23 Follow Up: Procedure(s): MM tomosynthesis screening BI Accession Number(s): [id number] cc: GRAYSON ALBERT Patient Name: ALEXIA ACEVES MR#: [id number] : 1955 Exam Date: 12/30/2023 Ordering Doctor: DR GRAYSON ALBERT M.D. RADIOLOGY REPORT PROCEDURE: MM TOMOSYNTHESIS SCREENING BI COMPARISON: MG MAMM SCREEN TERRIE W CAD, 08/26/2020. MG MAMM SCREEN 3D TERRIE CAD, 12/10/2021. INDICATIONS: Screening Calculator Name NCI Breast Cancer Risk Assessment Tool 5 Year Breast Cancer Risk 1.20% Lifetime Breast Cancer Risk 4.40% Personal Breast Cancer No Personal Ovarian Cancer No Treatments None Family Cancers Grandmother-paternal with breast cancer at age 60; Father with esophegeal cancer at age 56. LOCATION: The [facility] BREAST COMPOSITION: The breasts are almost entirely fatty. FINDINGS: DIAGNOSTIC CATEGORY 2--BENIGN FINDING. NO CHANGE FROM COMPARISON. Scattered benign-appearing nodules are present. Scattered benign-appearing calcifications are present. Scattered benign-appearing lymph nodes are present. RIGHT BREAST: No significant suspicious finding. LEFT BREAST: No significant suspicious finding. RECOMMENDATIONS: ROUTINE MAMMOGRAM AND CLINICAL EVALUATION IN 12 MONTHS. PLEASE NOTE: A NORMAL MAMMOGRAM DOES NOT EXCLUDE THE POSSIBILITY OF BREAST CANCER. A CLINICALLY SUSPICIOUS PALPABLE LUMP SHOULD BE BIOPSIED. Dictated by: Jhonatan Ravi MD on 12/30/2023 at 14:18 Approved by: Jhonatan Ravi MD on 12/30/2023 at 14:19 Dictated By: Jhonatan Ravi M.D. Signed By: 12/30/23 1421 DD/ 1420 TD/TT: Network Development Coordinator: Procedure Note Radiology, Radiologist, - 12/30/2023 [place] [address] Mammography Report Signed Patient: Alexia Aceves SMR#: [id number] : 1955cct:[id number] Age/Sex: 68 / FADM Date: 12/30/23 Loc: MAMMO Attending Dr: GRAYSON ALBERT Ordering Physician: GRAYSON ALBERTResults: Date of Service: 12/30/23Follow Up: Procedure(s): MM tomosynthesis screening BI Accession Number(s): [id number] cc: GRAYSON ALBERT Patient Name: ALEXIA ACEVES MR#: [id number] : 1955 Exam Date: 12/30/2023 Ordering Doctor: DR GRAYSON ALBERT M.D. RADIOLOGY REPORT PROCEDURE: MM TOMOSYNTHESIS SCREENING BI COMPARISON: MG MAMM SCREEN TERRIE W CAD, 08/26/2020. MG MAMM SCREEN 3DBIL CAD, 12/10/2021. INDICATIONS: Screening Calculator Name NCI Breast Cancer Risk Assessment Tool 5 Year Breast Cancer Risk 1.20% Lifetime Breast Cancer Risk 4.40% Personal Breast Cancer No Personal Ovarian Cancer No Treatments None Family Cancers Grandmother-paternal with breast cancer at age 60;Father with esophegeal cancer at age 56. LOCATION: The [facility] BREAST COMPOSITION: The breasts are almost entirely fatty. FINDINGS: DIAGNOSTIC CATEGORY 2--BENIGN FINDING. NO CHANGE FROM COMPARISON. Scattered benign-appearing nodules are present. Scatteredbenign-appearing calcifications are present. Scattered benign-appearing lymph nodes are present. RIGHT BREAST: No significant suspicious finding. LEFT BREAST: No significant suspicious finding. RECOMMENDATIONS: ROUTINE MAMMOGRAM AND CLINICAL EVALUATION IN 12 MONTHS. PLEASE NOTE: A NORMAL MAMMOGRAM DOES NOT EXCLUDE THE POSSIBILITY OFBREAST CANCER. A CLINICALLY SUSPICIOUS PALPABLE LUMP SHOULD BE BIOPSIED. Dictated by: Jhonatan Ravi MD on 12/30/2023 at 14:18 Approved by: Jhonatan Ravi MD on 12/30/2023 at 14:19 Dictated By: Jhonatan Ravi M.D. Signed By:12/30/23 1421 DD/ 1420 TD/TT: Network Development Coordinator: Grayson Albert MD [facility] Final Result documented in this encounter Visit Diagnoses Not on filedocumented in this encounter Care Teams Wheel Shop Supervisor Relationship Specialty Start Date End Date Grayson Albert MD [address] [place] [address] PCP - General Internal Medicine 01/07/23 Grayson Albert MD [address] [place] [address] PCP - ACO Reach 10/08/23WednesdayYola LPN [address] [place] [address] Licensed Practical Nurse Family Medicine 02/21/24 09/15/24 Ct Arceo, RN [address] [place] [address] Licensed Practical Nurse Family Medicine 09/15/24 10/31/24 Meka Cardenas LPN [address] [place] [address] 10/31/24 documented as of this encounter
--- OUTSIDE RECORDS SUMMARY | 2025-04-17 09:57 | XMS_ITS | Encounter Summary ---
Author Organization [facility] Address [address] [facility] [place] [address] Care Team Providers Care Advertising Account Representative Name Role Phone Grayson Albert MD Primary Care Provider Grayson Albert MD Unavailable [phone] Wednesday, Yola COLLECTION SYSTEMS FOREMAN Unavailable [phone] Arceo RN Unavailable [place] Meka COLLECTION SYSTEMS FOREMAN Unavailable Encounter Details Date Type Department Care Team (Late st Contact Info) Description 07/08/2023 Abstract [facility] [place] [facility] [address] [facility] 110 [place] [address] Grayson Albert MD 112 [facility] 110 [place], [place] [id number] Social History Tobacco Use Types Packs/Day Years [...] Evaluation [facility] [place] [facility] [address] [facility] 170 [place] [address] Corry Hutchinson, PT 04/27/2025 10:30 AM EDT Treatment [facility] [place] [facility] [address] [place] [address] Karolina Pedro, CT TECHNOLOGIST 04/30/2025 10:30 AM EDT Treatment [facility] [place] [facility] [address] [place] [address] Pedro Turcios, CT TECHNOLOGIST 05/02/2025 10:30 AM EDT Treatment [facility] [place] [facility] [address] [place] [address] Pedro Turcios, CT TECHNOLOGIST 05/17/2025 10:00 AM EDT Office Visit [facility] [place] [facility] [address] [place] [address] Radha Main, PUBLICATION DISTRIBUTOR [address] [place] [address] documented as of this encounter Visit Diagnoses Not on filedocumented in this encounter Care Teams Advertising Account Representative Relationship Specialty Start Date End Date Grayson Albert MD [address] [place] [address] PCP - General Internal Medicine 01/07/23 Grayson Albert MD [address] [place] [address] PCP - ACO Reach 10/08/23WednesdayYola LPN [address] [place] [address] Licensed Practical Nurse Family Medicine 02/21/24 09/15/24 Ct Arceo, FÉLIX [address] [place] [address] Licensed Practical Nurse Family Medicine 09/15/24 10/31/24 Meka Cardenas LPN [address] [place] [address] 10/31/24 documented as of this encounter
--- OUTSIDE RECORDS SUMMARY | 2025-04-17 09:57 | XMS_ITS | Encounter Summary ---
Author Organization [facility] Address [address] [facility] [place] [address] Care Team Providers Care Book Retailer Name Role Phone Grayson Albert MD Primary Care Provider Grayson Albert MD Unavailable [phone] Wednesday, Yola COUNSELOR AID Unavailable [phone] Arceo RN Unavailable [place] COUNSELOR AID Unavailable Encounter Details Date Type Department Care Team (Late st Contact Info) Description 05/23/2024 Abstract [facility] [place] [facility] 112 [facility] 110 [place] [address] Grayson Albert MD 112 [facility] 110 [place], [place] [address] Social History Tobacco Use Types Packs/Day Years [...] How often do you attend chur or episcopalian services? More than 4 times per year 02/21/2024 Do you belong to any clubs o r organizations such as episcopal groups, unions, fraternal or athletic groups, or [...] medical care, and heating? Somewhat hard 02/21/2024 [facility] Occupat ional Health - Occupational [...] place to sleep or slept in a skilled nursing (including now)? No 12/30/2023 Housing Stability Vital Sign Answer Antonio e Recorded In the last 12 months, was t here a time when you were not able to pay the mortgage or rent on time? No 02/21/2024 In the past 12 months, how m any times have you moved where you were living? 1 02/21/2024 At any time in the past 12 m [facility], were you homeless or living in a skilled nursing (including now)? No 02/21/2024 Comments Unknown Sex [...] [facility] [place] [facility] [address] [facility] [address] [place] [address] Corry Hutchinson, RAKAN 04/27/2025 10:30 AM EDT Treatment [facility] [place] [facility] [address] [place] [address] AndraePedro eagle, FPGA ENGINEER 04/30/2025 10:30 AM EDT Treatment [facility] [place] [facility] [address] [place] [address] AndraePedro eagle, FPGA ENGINEER 05/02/2025 10:30 AM EDT Treatment [facility] [place] [facility] [address] [place] [address] AndraePedro eagle, FPGA ENGINEER 05/17/2025 10:00 AM EDT Office Visit [facility] [place] [facility] [address] [place] [address] Radha Main, LABOR CREW SUPERVISOR [address] [place] [address] documented as of this encounter Visit Diagnoses Not on filedocumented in this encounter Care Teams Book Retailer Relationship Specialty Start Date End Date Grayson Albert MD [address] [place] [address] PCP - General Internal Medicine 01/07/23 Grayson Albert MD [address] [place] [address] PCP - ACO Reach 10/08/23WedKraigYola coe LPN [address] [place] [address] Licensed Practical Nurse Family Medicine 02/21/24 09/15/24 Ct Arceo, FÉLIX [address] [place] [address] Licensed Practical Nurse Family Medicine 09/15/24 10/31/24 Meka Cardenas LPN [address] [place] [address] 10/31/24 documented as of this encounter
--- OUTSIDE RECORDS SUMMARY | 2025-04-17 09:57 | XMS_ITS | Encounter Summary ---
Author Organization [facility] Address [address] [facility] [place] [address] Care Team Providers Care Pattern Checker Name Role Phone Grayson Albert MD Primary Care Provider [phone] Grayson Albert MD Unavailable [phone] Wednesday, Yola MAIL DELIVERER Unavailable [phone] Arceo RN Unavailable [phone] [place] Meka MAIL DELIVERER Unavailable Reason for Visit * Reason Comments Med Refill Encounter Details Date Type Department Care Team (Late st Contact Info) Description 06/01/2023 Refill [facility] [address] [place] [address] Garret Chow DPLyndsay [address] [place], [place] [phone] Social History Tobacco Use Types Packs/Day Years [...] Encounters Date Type Department Care Team (Late Contact Info) Description 04/25/2025 11:30 AM EDT Evaluation [facility] [address] [place] [address] Corry Hutchinson, PT 04/27/2025 10:30 AM EDT Treatment [facility] [place] [facility] [address] [place] [address] Karolina Pedro, COW PUNCHER 04/30/2025 10:30 AM EDT Treatment [facility] [place] [facility] [address] [place] [address] Karolina Pedro, COW PUNCHER 05/02/2025 10:30 AM EDT Treatment [facility] [place] [facility] [address] [place] [address] Karolina Pedro, COW PUNCHER 05/17/2025 10:00 AM EDT Office Visit [facility] [place] [facility] [address] [place] [address] Radha Main, DIRECTOR OF DISTRICT OFFICE [address] [place] [address] documented as of this encounter Visit Diagnoses Not on filedocumented in this encounter Care Teams Pattern Checker Relationship Specialty Start Date End Date Grayson Albert MD [address] [place] [address] PCP - General Internal Medicine 01/07/23 Grayson Albert MD [address] [place] [address] PCP - ACO Reach 10/08/23Wednesday, PATRICK Aceves [address] [place] [address] Licensed Practical Nurse Family Medicine 02/21/24 09/15/24 Ct Arceo, FÉLIX [address] [place] [address] Licensed Practical Nurse Family Medicine 09/15/24 10/31/24 Meka Cardenas LPN 112 [facility] 110 [place] [address] 10/31/24 documented as of this encounter
--- OUTSIDE RECORDS SUMMARY | 2025-04-17 09:57 | XMS_ITS | Encounter Summary ---
Author Organization [facility] Address [address] [facility] [place] [address] Care Team Providers Care Station Master Name Role Phone Grayson Albert MD Primary Care Provider Grayson Albert MD Unavailable [phone] Wednesday, Yola LINUX UNIX SYSTEM ADMINISTRATOR Unavailable [phone] Arceo RN Unavailable [place] LINUX UNIX SYSTEM ADMINISTRATOR Unavailable Encounter Details Date Type Department Care Team (Late st Contact Info) Description 02/23/2024 Abstract [facility] [place] [facility] [address] [facility] 110 [place] [address] Grayson Albert MD 112 [facility] 110 [place], [place] [id number] Social History Tobacco Use Types Packs/Day Years [...] How often do you attend chur or synagogue services? More than 4 times per year [...] medical care, and heating? Somewhat hard 02/21/2024 [facility] of Occupat ional Health - Occupational Stress [...] any time in the past 12 m [facility], were you homeless or living [...] [address] [place] [address] Corry Hutchinson, PT 04/27/2025 10:30 AM EDT Treatment [facility] [place] [facility] [address] [place] [address] Pedro Turcios, SENIOR BUYER 04/30/2025 10:30 AM EDT Treatment [facility] [place] [facility] [address] [place] [address] Pedro Turcios, SENIOR BUYER 05/02/2025 10:30 AM EDT Treatment [facility] [place] [facility] [address] [place] [address] Pedro Turcios, SENIOR BUYER 05/17/2025 10:00 AM EDT Office Visit [facility] [place] [facility] [address] [place] [address] Radha Main, COUNTRY PRINTER [address] [place] [address] documented as of this encounter Visit Diagnoses Not on filedocumented in this encounter Care Teams Station Master Relationship Specialty Start Date End Date Grayson Albert MD [address] [place] [address] PCP - General Internal Medicine 01/07/23 Grayson Albert MD [address] [place] [address] PCP - ACO Reach 10/08/23WednesdayYola LPN [address] [place] [address] Licensed Practical Nurse Family Medicine 02/21/24 09/15/24 Ct Arceo, FÉLIX [address] [place] [address] Licensed Practical Nurse Family Medicine 09/15/24 10/31/24 Meka Cardenas LPN [address] [place] [address] 10/31/24 documented as of this encounter
--- OUTSIDE RECORDS SUMMARY | 2025-04-17 09:57 | XMS_ITS | Encounter Summary ---
Author Organization [facility] Address [address] [facility] [place] [address] Care Team Providers Care Director Of Instruction Name Role Phone Grayson Ablert MD Primary Care Provider Grayson Albert MD Unavailable [phone] Wednesday, Yola FINE ARTS PACKER Unavailable [phone] Arceo RN Unavailable [place] Meka FINE ARTS PACKER Unavailable Encounter Details Date Type Department Care Team (Late st Contact Info) Description 04/21/2023 Abstract [facility] [place] [facility] [address] [facility] 110 [place] [address] Grayson Albert MD 112 [facility] 110 [place], [place] [id number] Social History Tobacco Use Types Packs/Day Years [...] Evaluation [facility] [place] [facility] [address] [facility] 170 [place] [address] Corry Hutchinson, PT 04/27/2025 10:30 AM EDT Treatment [facility] [place] [facility] [address] [place] [address] Karolina Pedro, REFRIGERATION PLANT CORK INSULATOR 04/30/2025 10:30 AM EDT Treatment [facility] [place] [facility] [address] [place] [address] Pedro Turcios, REFRIGERATION PLANT CORK INSULATOR 05/02/2025 10:30 AM EDT Treatment [facility] [place] [facility] [address] [place] [address] Pedro Turcios, REFRIGERATION PLANT CORK INSULATOR 05/17/2025 10:00 AM EDT Office Visit [facility] [place] [facility] [address] [place] [address] Radha Main, CONCRETE FINISHER APPRENTICE [address] [place] [address] documented as of this encounter Visit Diagnoses Not on filedocumented in this encounter Care Teams Director Of Instruction Relationship Specialty Start Date End Date Grayson Albret MD [address] [place] [address] PCP - General Internal Medicine 01/07/23 Grayson Albert MD [address] [place] [address] PCP - ACO Reach 10/08/23WednesdayYola LPN [address] [place] [address] Licensed Practical Nurse Family Medicine 02/21/24 09/15/24 Ct Arceo, FÉLIX [address] [place] [address] Licensed Practical Nurse Family Medicine 09/15/24 10/31/24 Meka Cardenas LPN [address] [place] [address] 10/31/24 documented as of this encounter
--- OUTSIDE RECORDS SUMMARY | 2025-04-17 09:57 | XMS_ITS | Encounter Summary ---
Author Organization [facility] Address [address] [facility] [place] [address] Care Team Providers Care Methods Study Analyst Name Role Phone Grayson Albert MD Primary Care Provider [phone] Grayson Albert MD Unavailable Wednesday, Yola SPECIFICATION CONSULTANT Unavailable [phone] Arceo RN Unavailable [phone] DuarteMeka SPECIFICATION CONSULTANT Unavailable Encounter Details Date Type Department Care Team (Late st Contact Info) Description 03/23/2024 Abstract [facility] [place] [facility] [address] [facility] 110 [place] [phone] Grayson Albert MD 112 [facility] 110 [place], [place] [id number] Social History Tobacco Use Types Packs/Day Years [...] How often do you attend chur or yarsanism services? More than 4 times per year 02/21/2024 Do you belong to any clubs o r organizations such as orthodoxy groups, unions, fraternal or athletic groups, or [...] medical care, and heating? Somewhat hard 02/21/2024 [facility] [place] of Occupat ional Health - Occupational Stress [...] place to sleep or slept in a assisted (including now)? No 12/30/2023 Housing Stability Vital Sign Answer Antonio e Recorded In the last 12 months, was t here a time when you were not able to pay the mortgage or rent on time? No 02/21/2024 In the past 12 months, how m any times have you moved where you were living? 1 02/21/2024 At any time in the past [address] [facility], were you homeless or living in a assisted (including now)? No 02/21/2024 Comments Unknown Sex [...] [facility] [place] [facility] [address] [facility] [address] [place] [address] Corry Hutchinson, RAKAN 04/27/2025 10:30 AM EDT Treatment [facility] [place] [facility] [address] [place] [address] AndraePedro eagle, ACCOUNTING POLICY CONSULTANT 04/30/2025 10:30 AM EDT Treatment [facility] [place] [facility] [address] [place] [address] AndraePedro eagle, ACCOUNTING POLICY CONSULTANT 05/02/2025 10:30 AM EDT Treatment [facility] [place] [facility] [address] [place] [address] AndraePedro eagle, ACCOUNTING POLICY CONSULTANT 05/17/2025 10:00 AM EDT Office Visit [facility] [place] [facility] [address] [place] [address] Radha Main, HOUSE PIPING INSPECTOR [address] [place] [address] documented as of this encounter Visit Diagnoses Not on filedocumented in this encounter Care Teams Methods Study Analyst Relationship Specialty Start Date End Date Grayson Albert MD [address] [place] [address] PCP - General Internal Medicine 01/07/23 Grayson Albert MD [address] [place] [address] PCP - ACO Reach 10/08/23WedKraigYola coe LPN [address] [place] [address] Licensed Practical Nurse Family Medicine 02/21/24 09/15/24 Ct Arceo, FÉLIX [address] [place] [address] Licensed Practical Nurse Family Medicine 09/15/24 10/31/24 Meka Cardenas LPN [address] [place] [address] 10/31/24 documented as of this encounter
--- OUTSIDE RECORDS SUMMARY | 2025-04-17 09:57 | XMS_ITS | Patient Health Record ---
Author Organization [facility] Address [address] [place], [place] [id number] Care Team Providers Care Business Process Expert Name Role Phone Genet Gazra Unavailable [phone] Reason For Referral No Information Plan Of Treatment No Information Insurance Providers Payer Name Payer Address Payer Phone Subscriber Number Group Number Insured Name Patient Relationship to Insured Coverage Start Date Coverage End Date [employer] DISCOUNT Plan [address] [place] [id number] [id number] Jovanna Ahn Self - patient is the insured 4
--- OUTSIDE RECORDS SUMMARY | 2025-04-17 09:57 | XMS_ITS | Encounter Summary ---
Author Organization [facility] Address [address] [facility] [place] [address] Care Team Providers Care Signals Intelligence Analyst Name Role Phone Grayson Albert MD Primary Care Provider Grayson Albert MD Unavailable [phone] Wednesday, Yola REGISTERED APPRAISER Unavailable [phone] Arceo RN Unavailable [place] REGISTERED APPRAISER Unavailable Encounter Details Date Type Department Care Team (Late st Contact Info) Description 05/23/2024 Abstract [facility] [place] [facility] 112 [facility] 110 [place] [phone] Grayson Albert MD [address] [facility] 110 [place], [place] [id number] Social History Tobacco Use Types Packs/Day Years [...] How often do you attend chur or yarsani services? More than 4 times per year 02/21/2024 Do you belong to any clubs o r organizations such as restoration groups, unions, fraternal or athletic groups, or [...] medical care, and heating? Somewhat hard 02/21/2024 [facility] [place] of Occupat ional Health - Occupational Stress [...] any time in the past 12 m [facility], were you homeless or living in [...] [address] [facility] [address] [place] [address] Corry Hutchinson, RAKAN 04/27/2025 10:30 AM EDT Treatment [facility] [place] [facility] [address] [place] [address] AndraePedro eagle, APPLICATION PACKAGER 04/30/2025 10:30 AM EDT Treatment [facility] [place] [facility] [address] [place] [address] AndraePedro eagle, APPLICATION PACKAGER 05/02/2025 10:30 AM EDT Treatment [facility] [place] [facility] [address] [place] [address] AndraePedro eagle, APPLICATION PACKAGER 05/17/2025 10:00 AM EDT Office Visit [facility] [place] [facility] [address] [place] [address] Radha Main, PROCEDURES RN [address] [place] [address] documented as of this encounter Visit Diagnoses Not on filedocumented in this encounter Care Teams Signals Intelligence Analyst Relationship Specialty Start Date End Date Grayson Albert MD [address] [place] [address] PCP - General Internal Medicine 01/07/23 Grayson Albert MD [address] [place] [address] PCP - ACO Reach 10/08/23WedKraigYola coe LPN [address] [place] [address] Licensed Practical Nurse Family Medicine 02/21/24 09/15/24 Ct Arceo, FÉLIX [address] [place] [address] Licensed Practical Nurse Family Medicine 09/15/24 10/31/24 Meka Cardenas LPN [address] [place] [address] 10/31/24 documented as of this encounter
--- NOTE | 2025-04-17 09:58 | MM_ITS ---
Patient Name: ALEXIA MILTON MR#: [id number] : 1955 Exam Date: 04/17/2025 Ordering Doctor: MRS. BRIAN BARBA NP RADIOLOGY REPORT PROCEDURE: MM TOMOSYNTHESIS SCREENING BI COMPARISON: MM TOMOSYNTHESIS SCREENING BI, 12/30/2023. MG MAMM SCREEN 3D TERRIE CAD, 12/10/2021. MG MAMM TERRIE SCRN W CAD DIG, 01/10/2013. INDICATIONS: screening Calculator Name NCI Breast Cancer Risk Assessment Tool 5 Year Breast Cancer Risk 1.20% Lifetime Breast Cancer Risk 4.20% Personal Breast Cancer No Personal Ovarian Cancer No Treatments None Family Cancers Grandmother-paternal with breast cancer at age 60; Father with esophegeal cancer at age 56. LOCATION: [facility] BREAST COMPOSITION: There are scattered areas of fibroglandular density. FINDINGS: DIAGNOSTIC CATEGORY 1--NEGATIVE. RIGHT BREAST: No significant suspicious finding. LEFT BREAST: No significant suspicious finding. RECOMMENDATIONS: ROUTINE MAMMOGRAM AND CLINICAL EVALUATION IN 12 MONTHS. Dictated by: Good Cosme DO on 04/17/2025 at 13:46 Approved by: Good Cosme DO on 04/17/2025 at 13:47
--- OUTSIDE RECORDS SUMMARY | 2025-04-17 09:58 | XMS_ITS | Clinical Summary ---
Author Organization [facility] Address [address] [facility] [place] [address] Care Team Providers Care Concrete Tester Name Role Phone Grayson lAbert MD Primary Care Provider [phone] Grayson Albert MD Unavailable [phone] Meka Cardenas PATRICK Unavailable Allergies No known active allergies Medications aspirin 81 MG EC tablet Take 81 mg by mouth in the morning. Active tiZANidine (Zanaflex) 4 MG tabletIndicatio ns:Spasm of muscle of lower back Take 1 tablet (4 mg) by mouth in the morning and 1 tablet (4 mg) in the evening and 1 tablet (4 mg) before bedtime. 30 tablet 1 07/05/20 23 Active glucose blood (Accu-Chek Zoe Plus) test stripIndication s:Type 2 diabetes mellitus with other specified complication, with long-term current use of insulin (HCC) 1 each by Other route in the morning and 1 each in the evening and 1 each before bedtime. 300 each 2 05/11/20 24 Active albuterol HFA (Ventolin HFA) 90 mcg/act inhalerIndicati ons:Panlobular emphysema (HCC),Shortness of breath,COVID-19 Inhale 2 puffs every 4 (four) hours if needed for wheezing 17 g 11 10/03/19 25 026 Active Budeson-Glycopy rrol-Formoterol (Breztri Aerosphere) 160-9-4.8 MCG/ACT aerosolIndicati ons:Panlobular emphysema (HCC) Inhale 2 puffs in the morning and 2 puffs before bedtime. 10.7 g 11 10/03/19 25 026 Active insulin glargine (Toujeo Max Solostar, 2 unit dial,) 300 UNIT/ML injectionIndica tions:Type 2 diabetes mellitus with other specified complication, with long-term current use of insulin (HCC) Inject 45 Units under the skin at bedtime Pt is to have 44 units instead of 45 units as this is a 2 unit dial. The computer Intellisenseem will not allow me to correct 6 mL 12 10/20/19 Active insulin aspart (NovoLOG FLEXPEN) 100 UNIT/ML penIndications: Type 2 diabetes mellitus without complication, with long-term current use of insulin (HCC),Type 2 diabetes mellitus with other specified complication, with long-term current use of insulin (HCC) Inject 15 Units under the skin in the morning and 15 Units in the evening. Inject with meals. Per sliding scale. 27 mL 3 10/25/19 25 026 Active rosuvastatin (Crestor) 20 MG tabletIndicatio ns:Hypercholest erolemia TAKE 1 TABLET BY MOUTH EVERY DAY 100 tablet 3 10/26/19 25 Active citalopram (CeleXA) 20 MG tabletIndicatio ns:Anxiety disorder, unspecified type Take 1 tablet (20 mg) by mouth Daily 30 tablet 1 04/12/20 25 025 Active citalopram (CeleXA) 10 MG tabletIndicatio ns:Other specified anxiety disorders TAKE 1 TABLET BY MOUTH EVERY DAY 100 tablet 3 02/24/20 24 025 Discontinued Active Problems Problem Noted Date Diagnosed Date Myalgia 09/14/2023 Acute right-sided low back pain with right-sided sciatica 01/13/2023 Arthritis of left knee 01/13/2023 Cigarette smoker 01/13/2023 Depression with anxiety 01/13/2023 Type 2 diabetes mellitus with other specified co mplication 01/13/2023 Elevated antinuclear antibody (KENDY) level 2022 Emphysema of lung 01/13/2023 Lumbosacral spondylosis without myelopathy 01/13 Menopausal and postmenopausal disorder Hypercholesterolemia 01/13/2023 Mixed hyperlipidemia 01/13/2023 Inflammatory arthritis 01/13/2023 Osteoarthritis of knee 01/13/2023 Osteoarthritis 01/13/2023 Severe obesity (BMI 35.0-39.9) with comorbidity 01/13/2023 Vitamin D deficiency 01/13/2023 Disorder of sacrum 10/25/2017 Overview (04/27/2023): Added automatically from request for surgery [id number] Resolved Problems Problem Noted Date Diagnosed Date Resolved Date Type 2 diabetes mellitus wit hout complications 01/13/2023 12/31/2023 Encounters Date Type Department Care Team Description 04/12/2025 10:00 AM EDT Office Visit [facility] [place] [facility] [address] [facility] [address] [place] [address] Radha Main, ERROL Medicare annual wellness visit, subsequent (Primary Dx); Anxiety disorder, unspecified type; Estrogen deficiency; Thyroid disorder screening; Vitamin D deficiency; Type 2 diabetes mellitus with other specified complication, with long-term current use of insulin ([facility]); Hypercholesterolemia ; Encounter for other screening for malignant neoplasm of breast; Acute pain of left shoulder; Screening for malignant neoplasm of skin; Pulmonary emphysema, unspecified emphysema type ([facility]); Arthritis of left knee; Lumbosacral spondylosis without myelopathy; Severe obesity (BMI 35.0-39.9) with comorbidity ([facility]); Depression with anxiety; Menopausal and postmenopausal disorder 04/12/2025 Bamboo flowsheet [facility] [place] [facility] [address] [facility] [address] [place] [address] Radha Main NP 04/12/2025 Travel 04/11/2025 Travel 03/15/2025 Patient Outreach [facility] [address] [place] [address] Meka Cardenas LPN 03/09/2025 Patient Outreach [facility] [address] [place] [address] Meka Cardenas LPN 03/06/2025 [facility] [address] [place] [address] Meka Cardenas LPN 02/26/2025 [facility] [address] [facility] [address] [place] [address] Grayson Albert MD 02/20/[address] [facility] [address] [place] [address] Meka Cardenas LPN 02/19/2025 Abstract [facility] [address] [facility] [address] [place] [address] Grayson Albert MD 01/17/2025 Orders Only [facility] [address] [facility] 110 [place] [address] Ita Caal, DIRECTOR OF SPA AND GUEST EXPERIENCE Estrogen deficiency from Last 3 Months Immunizations Immunization Administration Dates Next Due Influenza, High Dose Seasona l, Preservative Free 05/18/2024 Influenza, injectable, quadr ivalent, preservative free 05/13/2022,04/22/2021,05/02/2020 Influenza, seasonal, intrade rmal, preservative free 05/26/2017,04/10/2015 RSV, recombinant, protein alvarez bunit RSVpreF, adjuvant reconstitu, 120mcg/0.5mL, PF (Arexvy) 05/18/2024 Family History Medical History Relation Name Comments Cancer Father Alexia Diabetes Mother Vicki Heart disease Mother Vicki Obesity Sibling Relation Name Status Comments Father Alexia Mother Vicki Alive Sibling Social History Tobacco Use Types Packs/Day Years [...] friends or relatives? Patient declined 04/11/2025 Attends Islam Services Not on file 04/11 Do you belong to any clubs o r organizations such as catholic groups, unions, fraternal or athletic groups, or [...] Recorded Patient Health Questionnaire-2 Score 4 04/12/2025 [facility] of Occupat ional Health - Occupational Stress [...] place to sleep or slept in a fpc (including now)? No 12/30/2023 Housing Stability Vital Sign Answer Antonio e Recorded In the last 12 months, was t here a time when you were not able to pay the mortgage or rent on time? No 04/11/2025 Number of Times Moved in the Last Year Not on fi le 04/11/2025 At any time in the past 12 m [facility], were you homeless or living in a fpc (including now)? No 04/11/2025 Comments Unknown Sex and Gender Information Value Date Recorded Sex Assigned at Not on file Legal Sex Female 7:05 PM EDT Gender Identity Not on file Sexual Orientation Not on file Last Filed Vital Signs Vital Sign Reading [...] Mass Index 39.11 04/12/2025 10:12 AM EDT Plan of Treatment Upcoming Encounters Date Type Department Care Team (Late st Contact Info) Description 04/25/2025 11:30 AM EDT Evaluation [facility] [place] [facility] [address] [facility] [address] [place] [address] Corry Hutchinson, PT 04/27/2025 10:30 AM EDT Treatment [facility] [place] [facility] [address] [facility] [address] [place] [address] Pedro Turcios, PROPERTY DEVELOPER 04/30/2025 10:30 AM EDT Treatment [facility] [place] [facility] [address] [facility] [address] [place] [address] Pedro Turcios, PROPERTY DEVELOPER 05/02/2025 10:30 AM EDT Treatment [facility] [place] [facility] [address] [facility] [address] [place] [address] Pedro Turcios, PROPERTY DEVELOPER 05/17/2025 10:00 AM EDT Office Visit [facility] [place] [facility] [address] [facility] [address] [place] [address] Radha Main, SAMPLE PATTERNMAKER [address] [facility] 110 [place] [address] Health Maintenance Due Date Last Done Comments CT Colonography 1955 FIT-DNA 1955 FIT 1955 FOBT 1955 Sigmoidoscopy 1955 Pneumococcal Vaccine: 65+ Ye ars (1 of 2 - PCV) 1976 Colonoscopy 09/26/2022 09/26/2012 Colorectal Cancer Screening 09/26/2022 Mammogram 12/29/2024 12/30/2023, 050 11/2021, 08/26/2020, Additional history exists Diabetes: Urine Protein Screening 03/15/2025 03/15/2024, 10/15/2023, 07/05/2023, Additional history exists Influenza Vaccine (#1) 2025 , 05/13/2022, 04/22/2021, Additional history exists Diabetes: Hemoglobin A1C 07/12/2025 025, 10/19/2024, 06/22/2024, Additional history exists Medicare Annual Wellness (AWV) 04/12/2026 04/12/2025 , 03/22/2024 Diabetes: Retinopathy Screening 05/23/2026 05/23/2024, 05/11/2023, 05/12/2022, Additional history exists Procedures Procedure Name Priority Date/Time Associated Diagnosis Comments POCT GLYCOSYLATED HEMOGLOBIN (HGB A1C) Routine 04/12/2025 10:24 AM EDT Type 2 diabetes mellitus with other specified complication, with long-term current use of insulin (HCC) DIABETIC RETINOPATHY SCREENING - OU - BOTH EYES Routine 05/23/2024 MICROALBUMIN / CREATININE URINE RATIO Routine 03/15/2024 10:24 AM EDT Type 2 diabetes mellitus with other specified complication, with long-term current use of insulin (HCC) MM TOMOSYNTHESIS SCREENING BI 12/30/2023 2:20 PM EDT COLONOSCOPY Routine 09/26/2012 12:00 PM EST from Last 3 Months or Most Recently Relevant to Health Maintenance Results * (ABNORMAL) POCT glycosylated hemoglobin (Hb A1C) docked device (04/12/2025 10:24 AM EDT) Hemoglobin A1C 6.9 Blood Venous blood specimen / Unknown 04/12/2025 10:24 AM EDT us Radha Main NP POINT OF CARE TEST ENTER/EDIT OR DERABLES Final Result * (ABNORMAL) Diabetic Retinopathy Screening - OU - Both Eyes (05/23/2024) RESULTS abn Anatomical Region Laterality Modality Head Other 05/23/2024 us Grayson Albert MD OPHTH PHOTOGRAPHY Final Result * Microalbumin / creatinine urine ratio (03/15/2024 10:24 AM EDT) CREATININE, RANDOM URINE 153 20 - 275 mg/dL [facility] ALBUMIN, URINE 2.6 See Note: mg/dL [facility] Comment: Reference Range: Reference Range Not established ALBUMIN/CREATININE RATIO, RANDOM URINE 17 <30 mg/g creat [facility] Comment: The ADA defines abnormalities in albumin excretion as follows: Albuminuria Category Result (mg/g creatinine) Normal to Mildly increased <30 Moderately increased 30-299 Severely increased > OR = 300 The ADA recommends that at least two of three specimens collected within a 3-6 month period be abnormal before considering a patient to be within a diagnostic category. Urine Urine specimen obtained by clean catch procedure / Unknown 03/15/2024 10:24 AM EDT 03/15/2024 10:24 AM EDT Narrative [facility] - 03/16/2024 1:43 PM EDT FASTING:YES FASTING: YES Resulting Agency Comment Performing Organization Information Site ID: QPT Name: [facility] Address: [address] [place] [id number] Director: Willy Rivera MD us Grayson Albert MD LAB URINE ORDERABLES Final Res ult [facility] * MM TOMOSYNTHESIS SCREENING BI (12/30/2023 2:20 PM EDT) Anatomical Region Laterality Modality Other 12/30/2023 2:20 PM EDT Narrative 12/30/2023 2:21 PM EDT The [address] [address] Mammography Report Signed Patient: Alexia Aceves MR#: [id number] : 1955 Acct:[id number] Age/Sex: 68 / F ADM Date: 12/30/23 Loc: MAMMO Attending Dr: GRAYSON ALBERT Ordering Physician: GRAYSON ALBERT Results: Date of Service: 12/30/23 Follow Up: Procedure(s): MM tomosynthesis screening BI Accession Number(s): [id number] cc: GRAYSON ALBERT Patient Name: ALEXIA ACEVES MR#: [id number] : 1955 Exam Date: 12/30/2023 Ordering Doctor: [...] esophegeal cancer at age 58. LOCATION: [facility] BREAST COMPOSITION: The breasts are almost [...] Signed By: 12/30/23 1421 DD/ 1420 TD/TT: Cruller Maker Machine: Procedure Note Radiology, RadiologistMD - 12/30/2023 [place] [address] Mammography Report Signed Patient: Alexia Aceves SMR#: [id number] : 7Acct:[id number] Age/Sex: 68 / FADM Date: 12/30/23 Loc: MAMMO Attending Dr: GRAYSON ALBERT Ordering Physician: GRAYSON ALBERTResults: Date of Service: 12/30/23Follow Up: Procedure(s): MM tomosynthesis screening BI Accession Number(s): [id number] cc: GRAYSON ALBERT Patient Name: ALEXIA ACEVES MR#: [id number] : 1955 Exam Date: 12/30/2023 Ordering Doctor: [...] esophegeal cancer at age 58. LOCATION: [facility] BREAST COMPOSITION: The breasts are almost [...] M.D. Signed By:12/30/23 1421 DD/ 1420 TD/TT: Cruller Maker Machine: us Grayson Albert MD [facility] Final Result * Colonoscopy (09/26/2012 12:00 PM EST) Anatomical Region Laterality Modality Endoscopy 09/26/2012 12:0 0 PM EST Narrative 09/26/2012 12:00 PM EST PERFORMED AT [facility] LOCATION:[id number] tubular adenoma/divertic Procedure Note CONVERSION, GENERIC - 12/24/2022 PERFORMED AT [facility] LOCATION:[id number] tubular adenoma/divertic Grayson Albert MD ENDOSCOPY PROCEDURE ORDERABLES Final Result from Last 3 Months or Most Recently Relevant to Health Maintenance Insurance MEDICARE [facility] Care Teams Concrete Tester Relationship Specialty Start Date End Date Grayson Albert MD [address] [facility] [address] [place] [address] PCP - General Internal Medicine 01/07/23 Grayson Albert MD [address] [facility] [address] [place] [address] PCP - ACO Reach 10/08/23 Meka Cardenas LPN [address] [facility] [address] [place] [address] 10/31/24
--- OUTSIDE RECORDS SUMMARY | 2025-04-17 09:58 | XMS_ITS | Encounter Summary ---
Author Organization [facility] Address [address] [facility] [place] [address] Care Team Providers Care Naval Surface Fire Support Planner Name Role Phone Grayson Albert MD Primary Care Provider Grayson Albert MD Unavailable Meka Cardenas LPN Unavailable Encounter Details Date Type Department Care Team (Late st Contact Info) Description 02/19/2025 Abstract [facility] [place] [facility] [address] [facility] 110 [place] [address] Grayson Albert MD 112 [facility] 110 [place] [address] Social History Tobacco Use Types Packs/Day Years Used Date Smoking Tobacco: Former Cigarettes 0.5 10 Q uit: 11/07/2022 Smokeless Tobacco: Never Alcohol [...] How often do you attend chur or shinto services? More than 4 times per year 02/21/2024 Do you belong to any clubs o r organizations such as caodaism groups, unions, fraternal or athletic groups, or [...] medical care, and heating? Somewhat hard 02/21/2024 [facility] [place] of Occupat ional Health - Occupational Stress [...] any time in the past 12 m [facility], were you homeless or living in a [...] [facility] [place] [facility] [address] [facility] [address] [place] [address] Corry Hutchinson, PT 04/27/2025 10:30 AM EDT Treatment [facility] [place] [facility] [address] [facility] [address] [place] [address] Pedro Turcios, SHELLFISH DREDGE OPERATOR 04/30/2025 10:30 AM EDT Treatment [facility] [place] [facility] [address] [place] [address] Pedro Turcios, SHELLFISH DREDGE OPERATOR 05/02/2025 10:30 AM EDT Treatment [facility] [place] [facility] [address] [place] [address] Pedro Turcios, SHELLFISH DREDGE OPERATOR 05/17/2025 10:00 AM EDT Office Visit [facility] [place] [facility] [address] [place] [address] Radha Main, NUCLEAR RADIATION ENGINEER [address] [place] [address] documented as of this encounter Visit Diagnoses Not on filedocumented in this encounter Care Teams Naval Surface Fire Support Planner Relationship Specialty Start Date End Date Grayson Albert MD [address] [place] [address] PCP - General Internal Medicine 01/07/23 Grayson Albert MD [address] [place] [address] PCP - ACO Reach 10/08/23 Meka Cardenas LPN [address] [place] [address] 10/31/24 documented as of this encounter
--- OUTSIDE RECORDS SUMMARY | 2025-04-17 09:58 | XMS_ITS | Encounter Summary ---
Author Organization [facility] Address [address] [place] [address] Care Team Providers Care Brim Ironer Hand Name Role Phone Grayson Albert MD Primary Care Provider Grayson Albert MD Unavailable [phone] Cardenas Meka PATRICK Unavailable Encounter Details Date Type Department Care Team (Latest Contact Info) Description 04/11/2025 Travel Social History Tobacco Use Types Packs/Day Years [...] friends or relatives? Patient declined 04/11/2025 Attends Muslim Services Not on file 04/11 Do you belong to any clubs o r organizations such as latter day groups, unions, fraternal or athletic groups, or [...] Recorded Patient Health Questionnaire-2 Score 4 04/12/2025 [facility] of Occupat ional Health - Occupational Stress [...] place to sleep or slept in a group home (including now)? No 12/30/2023 Housing Stability Vital Sign Answer Antonio e Recorded In the last 12 months, was t here a time when you were not able to pay the mortgage or rent on time? No 04/11/2025 Number of Times Moved in the Last Year Not on fi le 04/11/2025 At any time in the past 12 m [facility], were you homeless or living in a group home (including now)? No 04/11/2025 Comments Unknown Sex and Gender Information Value Date Recorded Sex Assigned at Not on file Legal Sex Female 7:05 PM EDT Gender Identity Not on file Sexual Orientation Not on file documented as of this encounter Functional Status * Audit-C Score Answer Date of Assessment Author 0 04/11/2025 1:39 PM EDT Nahun, Generic * Q1: How often do you have a drink containing alcohol? Answer Date of Assessment Author Never 04/11/2025 1:39 PM EDT Nahun, Generic * Q2: How many drinks containing alcohol do you have on a typical day when you are drinking? Answer Date of Assessment Author Patient does not drink 04/11/2025 1:39 PM EDT My chart, Generic * Q3: How often do you have six or more drinks on one occasion? Answer Date of Assessment Author Never 04/11/2025 1:39 PM EDT Nahun, Generic * Over the past 2 weeks, how often have you been bothered by any of the following problems? Question Answer Date of Assessment Author Patient Health Questionnaire-2 Score 2 10/2024 1:43 PM EDT Mychart, Generic * Little interest or pleasure in doing things Answer Date of Assessment Author Several days 04/11/2025 1:43 PM EDT Mychart, Generic * Feeling down, depressed, or hopeless Answer Date of Assessment Author Several days 04/11/2025 1:43 PM EDT Mychart, Generic * Question Answer Date of Assessment Author Patient Health Questionnaire-9 Score 6 10/2024 1:43 PM EDT Mychart, Generic * Trouble falling or staying asleep, or sleeping too much Answer Date of Assessment Author Several days 04/11/2025 1:43 PM EDT Mychart, Generic * Feeling tired or having little energy Answer Date of Assessment Author Several days 04/11/2025 1:43 PM EDT Mychart, Generic * Poor appetite or overeating Answer Date of Assessment Author Several days 04/11/2025 1:43 PM EDT Mychart, Generic * Feeling bad about yourself - or that you are a failure or have let yourself or your family down Answer Date of Assessment Author Several days 04/11/2025 1:43 PM EDT Mychart, Generic * Trouble concentrating on things, such as reading the newspaper or watching television Answer Date of Assessment Author Not at all 04/11/2025 1:43 PM EDT Mychart, Generic * Moving or speaking so slowly that other people could have noticed? Or the opposite - being so fidgety or restless that you have been moving around a lot more than usual. Answer Date of Assessment Author Not at all 04/11/2025 1:43 PM EDT Mychart, Generic * Thoughts that you would be better off or hurting yourself in some way Answer Date of Assessment Author Not at all 04/11/2025 1:43 PM EDT Mychart, Generic documented as of this encounter Plan of Treatment Upcoming Encounters Date Type Department Care Team (Late st Contact Info) Description 04/25/2025 11:30 AM EDT Evaluation [facility] [facility] [address] [facility] [address] [place] [address] Corry Hutchinson, PT 04/27/2025 10:30 AM EDT Treatment [facility] [facility] [address] [place] [address] Karolina Pedro, BEACH PATROL LIEUTENANT 04/30/2025 10:30 AM EDT Treatment [facility] [place] [facility] [address] [place] [address] Karolina Pedro, BEACH PATROL LIEUTENANT 05/02/2025 10:30 AM EDT Treatment [facility] [place] [facility] [address] [place] [address] Karolina Pedro, BEACH PATROL LIEUTENANT 05/17/2025 10:00 AM EDT Office Visit [facility] [place] [facility] [address] [place] [address] Radha Main, BUSINESS RECORDS MANAGER [address] [place] [address] documented as of this encounter Visit Diagnoses Not on filedocumented in this encounter Care Teams Brim Ironer Hand Relationship Specialty Start Date End Date Grayson Albert MD [address] [place] [address] PCP - General Internal Medicine 01/07/23 Grayson Albert MD [address] [place] [address] PCP - ACO Reach 10/08/23 Meka Cardenas LPN [address] [place] [address] 10/31/24 documented as of this encounter
--- OUTSIDE RECORDS SUMMARY | 2025-04-17 09:58 | XMS_ITS | Encounter Summary ---
Author Organization [facility] Address [address] [place] [address] Care Team Providers Care Form Block Maker Name Role Phone Grayson Albert MD Primary Care Provider [phone] Grayson Albert MD Unavailable [phone] Ronald Meka PATRICK Unavailable Encounter Details Date Type Department Care Team (Late st Contact Info) Description 04/12/2025 Bamboo flowsheet [facility] [place] [facility] [address] [facility] [address] [place] [address] Radha Main, PLANT PHYSIOLOGY TEACHER [address] [facility] 110 [place], [place] [id number] Social History Tobacco Use Types Packs/Day Years [...] any clubs o r organizations such as alevism groups, unions, fraVycon or athletic groups, or school groups? No [...] Recorded Patient Health Questionnaire-2 Score 4 04/12/2025 [facility] of Occupat ional Health - Occupational Stress [...] any time in the past 12 m [facility], were you homeless or living in a assisted (including now)? No 04/11/2025 Comments Unknown Sex [...] [facility] [place] [facility] [address] [facility] [address] [place] [address] Corry Hutchinson, PT 04/27/2025 10:30 AM EDT Treatment [facility] [place] [facility] [address] [facility] [address] [place] [address] Pedro Turcios, DISTRIBUTION ENGINEER 04/30/2025 10:30 AM EDT Treatment [facility] [place] [facility] [address] [place] [address] Pedro Turcios, DISTRIBUTION ENGINEER 05/02/2025 10:30 AM EDT Treatment [facility] [place] [facility] [address] [place] [address] Pedro Turcios, DISTRIBUTION ENGINEER 05/17/2025 10:00 AM EDT Office Visit [facility] [place] [facility] [address] [place] [address] Radha Main, PLANT PHYSIOLOGY TEACHER [address] [place] [address] documented as of this encounter Visit Diagnoses Not on filedocumented in this encounter Additional Health Concerns Assessment Noted Time PHQ-9 Depression Total Score: 13 025 10:02 AM EDT documented as of this encounter Care Teams Form Block Maker Relationship Specialty Start Date End Date Grayson Albert MD [address] [place] [address] PCP - General Internal Medicine 01/07/23 Grayson Albert MD [address] [place] [address] PCP - ACO Reach 10/08/23 Meak Cardenas LPN [address] [place] [address] 10/31/24 documented as of this encounter
--- OUTSIDE RECORDS SUMMARY | 2025-04-17 09:58 | XMS_ITS | Encounter Summary ---
Author Organization [facility] Address [address] [facility] [place] [address] Care Team Providers Care Transition Of Care Specialist Name Role Phone Grayson Albert MD Primary Care Provider [phone] Grayson Albert MD Unavailable [phone] Meka Cardenas LPN Unavailable Encounter Details Date Type Department Care Team (Late st Contact Info) Description 12/05/2024 Abstract [facility] [place] [facility] [address] [facility] [address] [place] [address] Grayson Albert MD 112 [facility] 110 [place] [address] Social History Tobacco Use Types Packs/Day Years [...] How often do you attend chur or congregation services? More than 4 times per year 02/21/2024 Do you belong to any clubs o r organizations such as oriental orthodox groups, unions, fraternal or athletic groups, or [...] medical care, and heating? Somewhat hard 02/21/2024 [facility] [place] of Occupat ional Health - Occupational Stress [...] place to sleep or slept in a senior living (including now)? No 12/30/2023 Housing Stability Vital [...] were you homeless or living in a senior living (including now)? No 02/21/2024 Comments Unknown Sex [...] [facility] [place] [facility] [address] [facility] [address] [place] [address] Corry Hutchinson, PT 04/27/2025 10:30 AM EDT Treatment [facility] [place] [facility] [address] [facility] [address] [place] [address] Pedro Turcios, BLANKET CUTTER HAND 04/30/2025 10:30 AM EDT Treatment [facility] [place] [facility] [address] [place] [address] Pedro Turcios, BLANKET CUTTER HAND 05/02/2025 10:30 AM EDT Treatment [facility] [place] [facility] [address] [place] [address] Pedro Turcios, BLANKET CUTTER HAND 05/17/2025 10:00 AM EDT Office Visit [facility] [place] [facility] [address] [place] [address] Radha Main, MANUFACTURING ASSEMBLER [address] [place] [address] documented as of this encounter Visit Diagnoses Not on filedocumented in this encounter Care Teams Transition Of Care Specialist Relationship Specialty Start Date End Date Grayson Albert MD [address] [place] [address] PCP - General Internal Medicine 01/07/23 Grayson Albert MD [address] [place] [address] PCP - ACO Reach 10/08/23 Meka Cardenas LPN [address] [place] [address] 10/31/24 documented as of this encounter
--- OUTSIDE RECORDS SUMMARY | 2025-04-17 09:58 | XMS_ITS | Encounter Summary ---
Author Organization [facility] Address [address] [facility] [place] [address] Care Team Providers Care Golf Range Attendant Name Role Phone Grayson Albert MD Primary Care Provider [phone] Grayson Albert MD Unavailable [phone] Meka Cardenas LPN Unavailable Encounter Details Date Type Department Care Team (Late st Contact Info) Description 11/02/2024 Abstract [facility] [place] [facility] [address] [facility] [address] [place] [address] Grayson Albert MD 112 [facility] 110 [place] [address] Social History Tobacco Use Types Packs/Day Years [...] any clubs o r organizations such as yarsanism groups, unions, fraternal or athletic groups, or [...] medical care, and heating? Somewhat hard 02/21/2024 [facility] [place] of Occupat ional Health - Occupational Stress [...] place to sleep or slept in a chcf (including now)? No 12/30/2023 Housing Stability Vital Sign Answer Antonio e Recorded In the last 12 months, was t here a time when you were not able to pay the mortgage or rent on time? No 02/21/2024 In the past 12 months, how m any times have you moved where you were living? 1 02/21/2024 At any time in the past 12 m [facility], were you homeless or living in a chcf (including now)? No 02/21/2024 Comments Unknown Sex [...] [facility] [place] [facility] [address] [facility] [address] [place] [address] Corry Hutchinson, PT 04/27/2025 10:30 AM EDT Treatment [facility] [place] [facility] [address] [facility] [address] [place] [address] Pedro Turcios, BEEKEEPER FARMER 04/30/2025 10:30 AM EDT Treatment [facility] [place] [facility] [address] [place] [address] Pedro Turcios, BEEKEEPER FARMER 05/02/2025 10:30 AM EDT Treatment [facility] [place] [facility] [address] [place] [address] Pedro Turcios, BEEKEEPER FARMER 05/17/2025 10:00 AM EDT Office Visit [facility] [place] [facility] [address] [place] [address] Radha Main, COMMUNICATIONS WRITER [address] [place] [address] documented as of this encounter Visit Diagnoses Not on filedocumented in this encounter Care Teams Golf Range Attendant Relationship Specialty Start Date End Date Grayson Albert MD [address] [place] [address] PCP - General Internal Medicine 01/07/23 Grayson Albert MD [address] [place] [address] PCP - ACO Reach 10/08/23 Meka Cardenas LPN [address] [place] [address] 10/31/24 documented as of this encounter
--- OUTSIDE RECORDS SUMMARY | 2025-04-17 09:58 | XMS_ITS | Encounter Summary ---
Author Organization [facility] Address [address] [facility] [address] Care Team Providers Care Artificial Flowers Dyer Name Role Phone Grayson Albert MD Primary Care Provider [phone] Grayson Albert MD Unavailable [phone] Meka Cardenas LPN Unavailable Encounter Details Date Type Department Care Team (Late st Contact Info) Description 02/26/2025 Abstract [facility] [place] [facility] [address] [facility] 110 [place] [address] Grayson Albert MD 112 [facility] 110 [place] [address] Social History Tobacco Use Types Packs/Day Years [...] How often do you attend chur or cheondoism services? More than 4 times per year 02/21/2024 Do you belong to any clubs o r organizations such as hinduism groups, unions, fraternal or athletic groups, or [...] medical care, and heating? Somewhat hard 02/21/2024 [facility] [place] of Occupat ional Health - Occupational Stress [...] place to sleep or slept in a nursing home (including now)? No 12/30/2023 Housing Stability [...] were you homeless or living in a nursing home (including now)? No 02/21/2024 Comments Unknown Sex [...] [facility] [place] [facility] [address] [facility] [address] [place] [address] Corry Hutchinson, PT 04/27/2025 10:30 AM EDT Treatment [facility] [place] [facility] [address] [facility] [address] [place] [address] Pedro Turcios, DEVELOPMENT EDUCATOR 04/30/2025 10:30 AM EDT Treatment [facility] [place] [facility] [address] [place] [address] Pedro Turcios, DEVELOPMENT EDUCATOR 05/02/2025 10:30 AM EDT Treatment [facility] [place] [facility] [address] [place] [address] Pedro Turcios, DEVELOPMENT EDUCATOR 05/17/2025 10:00 AM EDT Office Visit [facility] [place] [facility] [address] [place] [address] Radha Main, DRYING ROOM ATTENDANT [address] [place] [address] documented as of this encounter Visit Diagnoses Not on filedocumented in this encounter Care Teams Artificial Flowers Dyer Relationship Specialty Start Date End Date Grayson Albert MD [address] [place] [address] PCP - General Internal Medicine 01/07/23 Grayson Albert MD [address] [place] [address] PCP - ACO Reach 10/08/23 Meka Cardenas LPN [address] [place] [address] 10/31/24 documented as of this encounter
--- OUTSIDE RECORDS SUMMARY | 2025-04-17 09:58 | XMS_ITS | Encounter Summary ---
Author Organization [facility] Address [address] [facility] [place] [address] Care Team Providers Care Drilling Supervisor Name Role Phone Grayson Albert MD Primary Care Provider Grayson Albert MD Unavailable [phone] Wednesday, Yola DIALYSIS TECH Unavailable [phone] Arceo RN Unavailable [phone] [place] [address] Meka DIALYSIS TECH Unavailable Encounter Details Date Type Department Care Team (Late st Contact Info) Description 04/16/2023 Abstract [facility] [address] [facility] [place] [address] Garret Chow, DPLyndsay [address] [place], [place] [address] Social History Tobacco Use Types Packs/Day Years [...] EDT Evaluation [facility] [address] [facility] [address] [place] [address] Caleb Hutchinsonmantha, PT 04/27/2025 10:30 AM EDT Treatment [facility] [place] [facility] [address] [place] [address] Karolina Pedro, BAND INSTRUMENT MAKER 04/30/2025 10:30 AM EDT Treatment [facility] [place] [facility] [address] [place] [address] Pedro Turcios, BAND INSTRUMENT MAKER 05/02/2025 10:30 AM EDT Treatment [facility] [place] [facility] [address] [place] [address] Karolina Pedro, BAND INSTRUMENT MAKER 05/17/2025 10:00 AM EDT Office Visit [facility] [place] [facility] [address] [place] [address] Radha Main, TORCH SHEARER [address] [place] [address] documented as of this encounter Visit Diagnoses Not on filedocumented in this encounter Care Teams Drilling Supervisor Relationship Specialty Start Date End Date Grayson Albert MD [address] [place] [address] PCP - General Internal Medicine 01/07/23 Grayson Albert MD [address] [place] [address] PCP - ACO Reach 10/08/23WednesdayYola LPN [address] [place] [address] Licensed Practical Nurse Family Medicine 02/21/24 09/15/24 Ct Arceo, RN [address] [place] [address] Licensed Practical Nurse Family Medicine 09/15/24 10/31/24 Meka Cardenas LPN [address] [place] [address] 10/31/24 documented as of this encounter
--- OUTSIDE RECORDS SUMMARY | 2025-04-17 09:58 | XMS_ITS | Encounter Summary ---
Author Organization [facility] Address [address] [facility] [place] [address] Care Team Providers Care Leather Lacer Name Role Phone Grayson Albert MD Primary Care Provider Grayson Albert MD Unavailable [phone] Wednesday, Yola COMMODITY LEAD Unavailable [phone] Arceo RN Unavailable [place] Meka COMMODITY LEAD Unavailable Reason for Visit * Reason Comments Med Refill Encounter Details Date Type Department Care Team (Late st Contact Info) Description 04/01/2023 Refill [facility] [address] [place] [address] Garret Chow DPLyndsay [address] [place], [place] [id number] Tinea unguium Social History Tobacco Use Types Packs/Day Years [...] [address] [place] [address] HutchinsonCorry, PT 04/27/2025 10:30 AM EDT Treatment [facility] [place] [facility] [address] [place] [address] AndraePedro eagle, TOURIST ESCORT 04/30/2025 10:30 AM EDT Treatment [facility] [place] [facility] [address] [place] [address] Karolina Pedro, TOURIST ESCORT 05/02/2025 10:30 AM EDT Treatment [facility] [place] [facility] [address] [place] [address] Karolina Pedro, TOURIST ESCORT 05/17/2025 10:00 AM EDT Office Visit [facility] [place] [facility] [address] [place] [address] Radha Main, MID LEVEL NET DEVELOPER [address] [place] [address] documented as of this encounter Visit Diagnoses Diagnosis Tinea unguium Dermatophytosis of nail documented in this encounter Care Teams Leather Lacer Relationship Specialty Start Date End Date Grayson Albert MD [address] [place] [address] PCP - General Internal Medicine 01/07/23 Grayson Albert MD [address] [place] [address] PCP - ACO Reach 10/08/23Wednesday, PATRICK Aceves [address] [place] [address] Licensed Practical Nurse Family Medicine 02/21/24 09/15/24 Ct Arceo, FÉLIX [address] [place] [address] Licensed Practical Nurse Family Medicine 09/15/24 10/31/24 Meka Cardenas LPN 112 [facility] 110 [place] [address] 10/31/24 documented as of this encounter
--- OUTSIDE RECORDS SUMMARY | 2025-04-17 09:58 | XMS_ITS ---
Author Organization [facility] Address [address] [place] [address] Care Team Providers Care Graphic Design Manager Name Role Phone Grasyon Albert MD Primary Care Provider [phone] Grayson Albert MD Unavailable [phone] Meka Cardenas LPN Unavailable Chronic Care Management (CCM) Status:Enrolled (Active) Start date:02/21/2024 Enrollment date:02/21/2024 Enrollment reason:Referred by provider Overview Please assess for Care Management needs. 02/21/24, 2:50 PM - YolawednesdayPATRICK- Patient gives verbal consent to be enrolled in CCM Program and understands there could be a bill for this service unless her insurance changes. Case Team Name Relationship Phone Meka Cardenas LPN(Responsible Staff) [phone] Continued Care and Services Coordination
--- OUTSIDE RECORDS SUMMARY | 2025-04-17 09:58 | XMS_ITS | Encounter Summary ---
Author Organization [facility] Address [address] [facility] [place] [address] Care Team Providers Care Plate Shop Helper Name Role Phone Grayson Albert MD Primary Care Provider [phone] Grayson Albert MD Unavailable [phone] Meka Cardenas CUSTOMER EXPERIENCE ASSOCIATE Unavailable Encounter Details Date Type Department Care Team (Late st Contact Info) Description 01/17/2025 Orders Only [facility] [place] [facility] [address] [place] [address] Ita Caal LPN [address] [place] [address] Estrogen deficiency Social History Tobacco Use Types Packs/Day Years [...] How often do you attend chur or rastafari services? More than 4 times per year 02/21/2024 Do you belong to any clubs o r organizations such as tenriism groups, unions, fraternal or athletic groups, or [...] medical care, and heating? Somewhat hard 02/21/2024 [facility] - Occupational [...] [facility] [facility] [address] [facility] [address] [place] [address] Corry Hutchinson, RAKAN 04/27/2025 10:30 AM EDT Treatment [facility] [place] [facility] [address] [facility] [address] [place] [address] Pedro Turcios, PLATER HELPER 04/30/2025 10:30 AM EDT Treatment [facility] [place] [facility] [address] [place] [address] AndraePedro eagle, PLATER HELPER 05/02/2025 10:30 AM EDT Treatment [facility] [place] [facility] [address] [place] [address] Andraefco Pedro, PLATER HELPER 05/17/2025 10:00 AM EDT Office Visit [facility] [place] [facility] [address] [place] [address] Radha Main, DATA ARCHITECT [address] [place] [address] documented as of this encounter Visit Diagnoses Diagnosis Estrogen deficiency Other ovarian failure documented in this encounter Care Teams Plate Shop Helper Relationship Specialty Start Date End Date Grayson Albert MD [address] [place] [address] PCP - General Internal Medicine 01/07/23 Grayson Albert MD [address] [place] [address] PCP - ACO Reach 10/08/23 Meka Cardenas LPN [address] [place] [address] 10/31/24 documented as of this encounter
--- OUTSIDE RECORDS SUMMARY | 2025-04-17 09:58 | XMS_ITS | Clinical Summary ---
Author Organization [facility] tem Address [id number] [address] [place] [address] Care Team Providers Care Manager Appointment Name Role Phone Grayson Albert MD Primary Care Provider [phone] Allergies No known active allergies Medications liraglutide (VICTOZA 2-ANATOLIY) 0.6 mg/0.1 mL (18 mg/3 mL) pen injector Inject 1.2 mg under the skin daily. Active insulin degludec (TRESIBA FLEXTOUCH U-100) 100 unit/mL (3 mL) insulin pen Inject 60 Units under the skin daily. Active metFORMIN (GLUMETZA) 1000 MG (MOD) 24 hr tablet Take 1,000 mg by mouth daily with breakfast. Active rosuvastatin (CRESTOR) 10 mg tablet Take 10 mg by mouth daily. Active aspirin 81 mg chewable tablet Chew 81 mg and swallow daily. Active ONETOUCH ULTRA TEST strip USE TO TEST BLOOD SUGAR BID 3 11/04/2017 Active Active Problems Problem Noted Date Diagnosed Date Disorder of sacrum 10/25/2017 Overview (10/25/2017): Added automatically from request for surgery [id number] Family History Medical History Relation Name Comments Cancer Father Breast cancer Maternal Uncle Breast cancer Maternal great-grandmother Coronary artery disease Mother Diabetes Mother Relation Name Status Comments Father Maternal Uncle Maternal great-grandmother Mother Alive Social History Tobacco Use Types Packs/Day Years Used Date Smoking Tobacco: Former Smokeless Tobacco: Never Alcohol Use Standard Drinks/Week Comments No 0 (1 standard drink = 0.6 oz pur e alcohol) Childcare Answer Date Recorded Childcare Unknown 01/06/2019 Employment Answer Date Recorded Employment Unknown 01/06/2019 Purpose - Life Answer Date Recorded Purpose and direction in life Unknown Comments No Sex and Gender Information Value Date Recorded Sex Assigned at Not on file Legal Sex Female 11:56 AM EDT Gender Identity Not on file Sexual Orientation Not on file Last Filed Vital Signs Vital Sign Reading Time Taken Comments Blood Pressure 144/81 08/01/2018 2:52 AM EST Pulse 79 08/01/2018 1:43 AM EST Temperature 36.8 C (98.3 F) 08/01/2018 1:43 AM EST Respiratory Rate 20 08/01/2018 1:43 AM EST Oxygen Saturation 97% 08/01/2018 1:43 AM EST Inhaled Oxygen Concentration - - Weight 104.3 kg (230 lb) 08/26/2020 10:04 AM EST Height 154.9 cm (5' 1 ) 08/26/2020 10:04 AM EST Body Mass Index 43.46 08/26/2020 10:04 AM EST Plan of Treatment Health Maintenance Due Date Last Done Comments Depression Screening 1969 Tobacco Screening 1969 Adult BMI Screening 1975 DTaP,Tdap and Td Vaccines (1 - Tdap) 1976 Zoster (Shingles) Vaccine (1 of 2) 2007 Fall Risk Screening 2022 COVID-19 Vaccine (3 - 2023-2 5 season) 2024 11/26/2020, 11/05/2020 Influenza Vaccine 04/09/2025 04/22/2021, , 05/26/2017 Medical Devices Not on file Insurance [employer] Care Teams Manager Appointment Relationship Specialty Start Date End Date Grayson Albert MD [address] [facility] [address] [place] [address] PCP - General Internal Medicine 10/22/17
--- OUTSIDE RECORDS SUMMARY | 2025-04-17 09:58 | XMS_ITS | Encounter Summary ---
Author Organization [facility] Address [address] [facility] [place] [address] Care Team Providers Care Loan Specialist Name Role Phone Grayson Albert MD Primary Care Provider [phone] Grayson Albert MD Unavailable [phone] Meka Cardenas LPN Unavailable Encounter Details Date Type Department Care Team (Late st Contact Info) Description 11/01/2024 Abstract [facility] [place] [facility] [address] [facility] [address] [place] [address] Grayson Albert MD 112 [facility] [address] [place] [address] Social History Tobacco Use Types Packs/Day Years [...] How often do you attend chur or protestant services? More than 4 times per year 02/21/2024 Do you belong to any clubs o r organizations such as mormon groups, unions, fraternal or athletic groups, or [...] medical care, and heating? Somewhat hard 02/21/2024 [facility] - Occupational Stress [...] place to sleep or slept in a residential (including now)? No 12/30/2023 Housing Stability Vital Sign Answer Antonio e Recorded In the last 12 months, was t here a time when you were not able to pay the mortgage or rent on time? No 02/21/2024 In the past 12 months, how m any times have you moved where you were living? 1 02/21/2024 At any time in the past 12 m [facility], were you homeless or living in a residential (including now)? No 02/21/2024 Comments Unknown Sex [...] [facility] [address] [facility] [address] [place] [address] Corry Hutchinson, PT 04/27/2025 10:30 AM EDT Treatment [facility] [place] [facility] [address] [facility] [address] [place] [address] Pedro Turcios, CENTERLESS GRINDING MACHINE ADJUSTER 04/30/2025 10:30 AM EDT Treatment [facility] [place] [facility] [address] [place] [address] Pedro Turcios, CENTERLESS GRINDING MACHINE ADJUSTER 05/02/2025 10:30 AM EDT Treatment [facility] [place] [facility] [address] [place] [address] Pedro Turcios, CENTERLESS GRINDING MACHINE ADJUSTER 05/17/2025 10:00 AM EDT Office Visit [facility] [place] [facility] [address] [place] [address] Radha Main, IT SECURITY ADMINISTRATOR [address] [place] [address] documented as of this encounter Visit Diagnoses Not on filedocumented in this encounter Care Teams Loan Specialist Relationship Specialty Start Date End Date Grayson Albert MD [address] [place] [address] PCP - General Internal Medicine 01/07/23 Grayson Albert MD [address] [place] [address] PCP - ACO Reach 10/08/23 Meka Cardenas LPN [address] [place] [address] 10/31/24 documented as of this encounter
--- OUTSIDE RECORDS SUMMARY | 2025-04-17 09:58 | XMS_ITS | Encounter Summary ---
Author Organization [facility] Address [address] [place] [address] Care Team Providers Care Power Hammer Operator Name Role Phone Grayson Albert MD Primary Care Provider [phone] Grayson Albert MD Unavailable [phone] Cardenas Meka PATRICK Unavailable Encounter Details Date Type Department Care Team (Latest Contact Info) Description 04/12/2025 Travel Social History Tobacco Use Types Packs/Day [...] friends or relatives? Patient declined 04/11/2025 Attends Buddhism Services Not on file 04/11 Do you belong to any clubs o r organizations such as voodoo groups, unions, fraternal or athletic groups, or [...] Recorded Patient Health Questionnaire-2 Score 4 04/12/2025 [facility] Occupat ional Health - [...] place to sleep or slept in a half-way (including now)? No 12/30/2023 Housing Stability Vital Sign Answer Antonio e Recorded In the last 12 months, was t here a time when you were not able to pay the mortgage or rent on time? No 04/11/2025 Number of Times Moved in the Last Year Not on fi le 04/11/2025 At any time in the past 12 m [facility], were you homeless or living in a half-way (including now)? No 04/11/2025 Comments Unknown Sex and Gender Information Value Date Recorded Sex Assigned at Not on file Legal Sex Female 7:05 PM EDT Gender Identity Not on file Sexual Orientation Not on file documented as of this encounter Functional Status * Over the [...] IZZY SCOTT documented as of this encounter Plan of Treatment Upcoming Encounters Date Type Department Care Team (Late st Contact Info) Description 04/25/2025 11:30 AM EDT Evaluation [facility] [place] [facility] [address] [facility] [address] [place] [address] Corry Hutchinson, PT 04/27/2025 10:30 AM EDT Treatment [facility] [place] [facility] [address] [place] [address] [place] [address] Pedro Turcios, FINANCIAL ADVOCATE 04/30/2025 10:30 AM EDT Treatment [facility] [place] [facility] [address] [place] [address] [place] [address] Pedro Turcios, FINANCIAL ADVOCATE 05/02/2025 10:30 AM EDT Treatment [facility] [place] [facility] [address] [place] [address] [place] [address] Lucio Turciosall, MELISSA 05/17/2025 10:00 AM EDT Office Visit [facility] [place] [facility] [address] [place] [address] [place] [address] Radha Main, NARROW GAUGE ENGINEER [address] [facility] [address] [place] [address] documented as of this encounter Visit Diagnoses Not on filedocumented in this encounter Additional Health Concerns Assessment Noted Time PHQ-9 Depression Total Score: 13 025 10:02 AM EDT documented as of this encounter Care Teams Power Hammer Operator Relationship Specialty Start Date End Date Grayson Albert MD [address] [facility] [address] [place] [address] PCP - General Internal Medicine 01/07/23 Grayson Albert MD [address] [facility] [address] [place] [address] PCP - ACO Reach 10/08/23 Meka Cardenas LPN [address] [facility] [address] [place] [address] 10/31/24 documented as of this encounter
--- OUTSIDE RECORDS SUMMARY | 2025-04-17 09:58 | XMS_ITS | Encounter Summary ---
Author Organization [facility] Address [address] [facility] [place] [address] Care Team Providers Care Patent Attorney Name Role Phone Grayson Albert MD Primary Care Provider [phone] Grayson Albert MD Unavailable [phone] Arceo RN Unavailable Meka Cardenas LPN Unavailable Encounter Details Date Type Department Care Team (Late st Contact Info) Description 10/25/2024 Abstract [facility] [place] [facility] [address] [facility] [address] [place] [address] Grayson Albert MD [address] [facility] [address] [place], [place] [id number] Social History Tobacco Use Types Packs/Day Years [...] How often do you attend chur or hindu services? More than 4 times per year [...] medical care, and heating? Somewhat hard 02/21/2024 [facility] Occupat ional Health - Occupational Stress [...] place to sleep or slept in a custodial (including now)? No 12/30/2023 Housing Stability Vital Sign Answer Antonio e Recorded In the last 12 months, was t here a time when you were not able to pay the mortgage or rent on time? No 02/21/2024 In the past 12 months, how m any times have you moved where you were living? 1 02/21/2024 At any time in the past 12 m [facility], were you homeless or living in a custodial (including now)? No 02/21/2024 Comments Unknown Sex [...] [facility] [place] [facility] [address] [facility] [address] [place] [address] Corry Hutchinson, RAKAN 04/27/2025 10:30 AM EDT Treatment [facility] [place] [facility] [address] [place] [address] Pedro Turcios, MANAGER CARGO 04/30/2025 10:30 AM EDT Treatment [facility] [place] [facility] [address] [place] [address] Pedro Turcios, MANAGER CARGO 05/02/2025 10:30 AM EDT Treatment [facility] [place] [facility] [address] [place] [address] Pedro Turcios, MANAGER CARGO 05/17/2025 10:00 AM EDT Office Visit [facility] [place] [facility] [address] [place] [address] Radha Mani, GROUP PRODUCT MANAGER [address] [place] [address] documented as of this encounter Visit Diagnoses Not on filedocumented in this encounter Care Teams Patent Attorney Relationship Specialty Start Date End Date Grayson Albert MD [address] [place] [address] PCP - General Internal Medicine 01/07/23 Grayson Albert MD [address] [place] [address] PCP - ACO Reach 10/08/23 Ct Arceo, FÉLIX [address] [place] [address] Licensed Practical Nurse Family Medicine 09/15/24 10/31/24 Meka Cardenas LPN [address] [place] [address] 10/31/24 documented as of this encounter
--- OUTSIDE RECORDS SUMMARY | 2025-04-17 10:03 | XMS_ITS | CCD ---
Author Organization [facility] Inform ion Partnership [facility] Care Team Providers Care Technology Administrator Name Role Phone ROOSEVELT, DR JONES Admitting Unavailable ROOSEVELT, DR JONES Attending Unavailable ROOSEVELT, DR JONES Consulting Unavailable TIFFANY, DR GARRET Elizabeth Consulting Unavailable ROOSEVELT, DR JONES Admitting Unavailable ROOSEVELT, DR JONES Attending Unavailable ROOSEVELT, DR JONES Primary Care Unavailable ROOSEVELT, DR JONES Consulting Unavailable JONESVILLE, DR FAMILIA Silva Consulting Unavailable GRAYSON ALBERT Primary Care Physician Grayson Albert MD Primary Care Provider [phone] Grayson Albert MD Unavailable Kraig AIRCRAFT MAINTENANCE TECHNICIAN, Yola Unavailable Ct Arceo RN Unavailable [phone] Cardenas AIRCRAFT MAINTENANCE TECHNICIAN, Meka Unavailable AMY STEIN Attending Unavailable AMY STEIN Attending Unavailable GARRET CHOW Attending Unavailable GRASYON ALBERT Attending Unavailable RADHA BARBA Attending Unavailable Allergies Allergy Classification Reported Allergen(s) Allergy Type Date of Onset Reaction(s) Facility (1 source) atorvastatin Drug Allergy 04-07-2016 [facility] Repository (1 source) Simvastatin Drug Allergy 04-07-2016 [facility] Repository Medications Current Medications Medication Drug Class(es) Dates Sig (Normalized) Sig (Original) [id number] 200 actuat albuterol 0.09 mg/actuat metered dose inhaler (7 sources) beta2-Adrenergic Agonist Start: 10-03-2024 End: 10-03-2025 take 2 puff(s) by inhalation every four hours for wheezing albuterol HFA (Ventolin HFA) 90 mcg/act inhaler Indications: Panlobular emphysema (HCC) , Shortness of breath , COVID-19 Inhale 2 puffs every 4 (four) hours if needed for wheezing 17 g 11 10/03/2024 10/03/2025 Active aspirin 81 mg delayed release oral tablet (13 sources) Platelet Aggregation Inhibitor, Nonsteroidal Anti-inflammatory Drug take 1 tablet by mouth in the morning aspirin 81 MG EC tablet Take 81 mg by mouth in the morning. Active 120 actuat budesonide 0.16 mg/actuat / formoterol fumarate 0.0048 mg/actuat / glycopyrrolate 0.009 mg/actuat metered dose inhaler (7 sources) Corticosteroid, beta2-Adrenergic Agonist Start: 10-03-2024 End: 10-03-2025 take 2 puff(s) by inhalation in the morning Budeson-Glycopyrr ol-Formoterol (Breztri Aerosphere) 160-9-4.8 MCG/ACT aerosol Indications: Panlobular emphysema (HCC) Inhale 2 puffs in the morning and 2 puffs before bedtime. 10.7 g 11 10/03/2024 10/03/2025 Active citalopram 20 mg oral tablet (15 sources) Serotonin Reuptake Inhibitor Start: 04-12-2025 End: 06-11-2025 take 1 tablet by mouth once daily citalopram (CeleXA) 20 MG tablet Indications: Anxiety disorder, unspecified type Take 1 tablet (20 mg) by mouth Daily 30 tablet 1 04/12/2025 06/11/2025 Active Start: 02-24-2024 End: 04-12-2025 take 1 tablet by mouth once daily citalopram (CeleXA) 10 MG tablet Indications: Other specified anxiety disorders TAKE 1 TABLET BY MOUTH EVERY DAY 100 tablet 3 02/24/2024 04/12/2025 Discontinued codeine phosphate 2 mg/ml / guaiFENesin 20 mg/ml oral solution (4 sources) Opioid Agonist Start: 10-03-2024 End: 10-19-2024 take 5 mL by mouth four times daily as needed for cough guaiFENesin-codeine (Robitussin-AC) 100-10 MG/5ML syrup Indications: Acute cough Take 5 mL by mouth 4 (four) times a day as needed for cough for up to 10 days 237 mL 10/03/2024 10/19/2024 Discontinued 14 actuat fluticasone furoate 0.1 mg/actuat / vilanterol 0.025 mg/actuat dry powder inhaler (8 sources) Corticostero id, beta2-Adrene rgic Agonist End: 10-03-2024 take 1 puff(s) by inhalation in the morning Fluticasone Furoate-Vilanterol (Breo Ellipta) 100-25 MCG/ACT aerosol powder Inhale 1 puff in the morning. 10/03/2024 Discontinued (Cost of medication) 3 ml insulin aspart, human 100 unt/ml pen injector (13 sources) Insulin Analog Start: 02-21-2024 End: 10-24-2025 inject 15 [IU] by subcutaneous injection in the morning, then inject 15 [IU] by subcutaneous injection once at mealtime insulin aspart (NovoLOG FLEXPEN) 100 UNIT/ML pen Indications: Type 2 diabetes mellitus without complication, with long-term current use of insulin (HCC) , Type 2 diabetes mellitus with other specified complication, with long-term current use of insulin ([facility]) Inject 15 Units under the skin in the morning and 15 Units in the evening. Inject with meals. Per sliding scale. 27 mL 3 10/24/2024 10/24/2025 Active 3 ml insulin glargine 300 unt/ml pen injector (17 sources) Insulin Analog Start: 10-19-2024 inject 2 [IU] by subcutaneous injection at bedtime insulin glargine (Toujeo Max Solostar, 2 unit dial,) 300 UNIT/ML injection Indications: Type 2 diabetes mellitus with other specified complication, with long-term current use of insulin ([facility]) Inject 45 Units under the skin at bedtime Pt is to have 44 units instead of 45 units as this is a 2 unit dial. The computer [employer] will not allow me to correct 6 mL 12 10/19/2024 Active Start: 10-19-2024 End: 10-19-2024 insulin glargine (Toujeo Max Solostar, 2 unit dial,) 300 UNIT/ML injection Indications: Type 2 diabetes mellitus with other specified complication, with long-term current use of insulin (CMS/HCC) Inject 45 Units under the skin at bedtime 6 mL 12 10/19/2024 10/19/2024 Discontinued Start: 10-16-2024 End: 10-19-2024 insulin glargine (Toujeo Max Solostar, 2 unit dial,) 300 UNIT/ML injection Indications: Type 2 diabetes mellitus with other specified complication, with long-term current use of insulin (CMS/[facility]) Inject 60 Units under the skin at bedtime 6 mL 12 10/16/2024 10/19/2024 Discontinued Start: 12-31-2023 End: 12-30-2024 insulin glargine (Toujeo Max SoloStar) 300 UNIT/ML injection Indications: Type 2 diabetes mellitus with other specified complication, with long-term current use of insulin (CMS/[facility]) Inject 60 Units under the skin at bedtime 6 mL 12 12/31/2023 12/30/2024 Active levoFLOXacin 500 mg oral tablet (4 sources) Quinolone Antimicrobial Start: 10-03-2024 End: 10-19-2024 take 1 tablet by mouth once daily levoFLOXacin (Levaquin) 500 MG tablet Indications: Shortness of breath , COVID-19 , Acute cough Take 1 tablet (500 mg) by mouth Daily for 10 days 10 tablet 10/03/2024 10/19/2024 Discontinued predniSONE 10 mg oral tablet (4 sources) Start: 10-03-2024 End: 10-19-2024 take 4 tablets by mouth once daily, then take 3 tablets by mouth once daily, then take 2 tablets by mouth once daily, then take 1 tablet by mouth once daily predniSONE (Deltasone) 10 MG tablet Indications: Panlobular emphysema (CMS/HCC) , Shortness of breath , COVID-19 , Acute cough Take 4 tablets (40 mg) by mouth Daily for 3 days, THEN 3 tablets (30 mg) Daily for 3 days, THEN 2 tablets (20 mg) Daily for 3 days, THEN 1 tablet (10 mg) Daily for 3 days. 30 tablet 10/03/2024 10/19/2024 Discontinued (Therapy completed) rosuvastatin calcium 20 mg oral tablet (13 sources) HMG-CoA Reductase Inhibitor Start: 12-31-2023 End: 12-30-2024 take 1 tablet by mouth once daily rosuvastatin (Crestor) 20 MG tablet Indications: Hypercholesterolemia TAKE 1 TABLET BY MOUTH EVERY DAY 100 tablet 3 10/25/2024 Active tiZANidine 4 mg oral tablet (13 sources) Central alpha-2 Adrenergic Agonist Start: 07-05-2023 take 1 tablet by mouth in the morning, then take 1 tablet by mouth in the evening, then take 1 tablet by mouth at bedtime tiZANidine (Zanaflex) 4 MG tablet Indications: Spasm of muscle of lower back Take 1 tablet (4 mg) by mouth in the morning and 1 tablet (4 mg) in the evening and 1 tablet (4 mg) before bedtime. 30 tablet 1 07/05/2023 Active Problems Active Problems Problem Classification Problem Date Documented Date Episodic/Chronic Anxiety disorders (17 sources) Mixed anxiety and depressive disorder; Translations: [Other specified anxiety disorders] Onset: 01-13-2023 01-13-2023 Chronic Chronic obstructive pulmonary disease and bronchiectasis (19 sources) Pulmonary emphysema; Translations: [Emphysema, unspecified] Onset: 01-13-2023 01-13-2023 Chronic Diabetes mellitus with complications (19 sources) Type 2 diabetes mellitus; Translations: [Type 2 diabetes mellitus with other specified complication] Onset: 01-13-2023 12-31-2023 Chronic Disorders of lipid metabolism (20 sources) Hypercholesterolemia; Translations: [Pure hypercholesterolemia, unspecified] Onset: 01-13-2023 01-13-2023 Chronic Menopausal disorders (17 sources) Disorder associated with menstruation AND/OR menopause; Translations: [Unspecified menopausal and perimenopausal disorder] Onset: 01-13-2023 01-13-2023 Chronic Mycoses (1 source) Onychomycosis due to dermatophyte ; Translations: [Tinea unguium] 06-13-2024 Episodic Nutritional deficiencies (15 sources) Vitamin D deficiency; Translations: [Vitamin D deficiency, unspecified] Onset: 01-13-2023 01-13-2023 Chronic Osteoarthritis (20 sources) Arthritis of left knee; Translations: [Unilateral primary osteoarthritis, left knee] Onset: 01-13-2023 01-13-2023 Chronic Other connective tissue disease (2 sources) Pain in toe; Translations: [Pain in right toe(s)] 06-13-2024 Episodic Other lower respiratory disease (2 sources) Dyspnea; Translations: [Shortness of breath] 10-03-2024 Episodic Other lower respiratory disease (2 sources) Cough; Translations: [Acute cough] 10-03-2024 Episodic Other non-traumatic joint disorders (2 sources) Pain in left shoulder; Translations: [Pain in joint, shoulder region] 04-12-2025 Episodic Other nutritional; endocrine; and metabolic disorders (17 sources) Severe obesity; Translations: [Morbid (severe) obesity due to excess calories] Onset: 01-13-2023 01-13-2023 Chronic Other screening for suspected conditions (not mental disorders or infectious disease) (10 sources) Encounter for screening mammogram for malignant neoplasm of breast; Translations: [Patient encounter status] Onset: 12-10-2021 Episodic Other skin disorders (1 source) Dystrophia unguium; Translations: [Nail dystrophy] 06-13-2024 Episodic Spondylosis; intervertebral disc disorders; other back problems (15 sources) Lumbosacral spondylosis without myelopathy; Translations: [Spondylosis without myelopathy or radiculopathy, lumbosacral region] Onset: 01-13-2023 01-13-2023 Chronic Substance-related disorders (13 sources) Cigarette smoker ; Translations: [Nicotine dependence, cigarettes, uncomplicated] Onset: 01-13-2023 01-13-2023 Chronic Unclassified (3 sources) LOW BACK PAIN, UNSPECIFIED; Translations: [LOW BACK PAIN, UNSPECIFIED] Onset: 05-18-2022 Unclassified (2 sources) Acute pain of left shoulder 04-12-2025 Unclassified (2 sources) Patient encounter status 04-12-2025 Viral infection (2 sources) Disease caused by 2019-nCoV; Translations: [COVID-19] 10-03-2024 Episodic Past or Other Problems Problem Classification Problem Date Documented Date Episodic/Chronic Diabetes mellitus without complication (13 sources) Type 2 diabetes mellitus without complication; Translations: [Type 2 diabetes mellitus without complications] Onset: 01-13-2023 Resolved: 12-31-2023 12-31-2023 Chronic Immunizations and screening for infectious disease (15 sources) Raised antinuclear antibody; Translations: [Other specified abnormal immunological findings in serum] Onset: 01-13-2023 01-13-2023 Episodic Mood disorders (2 sources) Mood disorders Onset: 04-12-2025 04-12-2025 Other connective tissue disease (13 sources) Muscle pain; Translations: [Myalgia, unspecified site] Onset: 09-14-2023 09-14-2023 Episodic Residual codes; unclassified (1 source) Family history of malignant neoplasm of breast; Translations: [FAMILY HX MALIG NEOPLASM OF BREAST] Onset: 01-09-2022 Episodic Residual codes; unclassified (1 source) Family history of malignant neoplasm of other organs or systems; Translations: [FAM HX MALIG NEOPLASM OTH ORGN/SYS] Onset: 01-09-2022 Episodic Spondylosis; intervertebral disc disorders; other back problems (20 sources) Acute back pain with sciatica; Translations: [Lumbago with sciatica, right side] Onset: 10-25-2017 01-13-2023 Episodic Unclassified (1 source) LOW BACK PAIN, UNSPECIFIED; Translations: [LOW BACK PAIN, UNSPECIFIED] Onset: 05-14-2022 Results Test Name Value Interpretation Reference Range Facility HbA1c (Bld) [Mass fraction]o n 04-12-2025 Interpretation and review of laboratory results [facility] 04-12-2025 HbA1c (Bld) [Mass fraction] 6.9 % [facility] COMPREHENSIVE METABOLIC PANE Emiliano 10-20-2024 Albumin [Mass/Vol] 3.9 g/dL Normal 3.6-5.1 [facility] Comment on above: Order Comment: FASTI NG:NO FASTING: NO Performed By: #### 1 0231 #### [facility] [place] [address] Assessment Coordinator: Willy Rivera MD Albumin/Globulin [Mass ratio] 1.4 {ratio} Normal 1.0-2.5 [facility] Comment on above: Order Comment: FASTI NG:NO FASTING: NO Performed By: #### 1 0231 #### [facility] [place] [address] Assessment Coordinator: Willy Rivera MD ALP [Catalytic activity/Vol] 72 U/L Normal 37-153 [facility] Comment on above: Order Comment: FASTI NG:NO FASTING: NO Performed By: #### 1 0231 #### [facility] [place] [address] Assessment Coordinator: Willy Rivera MD ALT [Catalytic activity/Vol] 11 U/L Normal 6-29 [facility] Comment on above: Order Comment: FASTI NG:NO FASTING: NO Performed By: #### 1 0231 #### [facility] [place] [address] Assessment Coordinator: Willy Rivera MD AST [Catalytic activity/Vol] 13 U/L Normal 10-35 [facility] Comment on above: Order Comment: FASTI NG:NO FASTING: NO Performed By: #### 1 0231 #### [facility] [address], [address] [place] [address] Assessment Coordinator: Willy Rivera MD Bilirubin [Mass/Vol] 0.5 mg/dL Normal 0.2-1.2 [facility] Comment on above: Order Comment: FASTI NG:NO FASTING: NO Performed By: #### 1 0231 #### [facility] [place] [address] Assessment Coordinator: Willy Rivera MD BUN/CREATININE RATIO SEE NOTE: Normal 6-22 [facility] Comment on above: Order Comment: FASTI NG:NO FASTING: NO Result Comment: Not Reported: BUN and Creatinine are within reference range. Performed By: #### 1 0231 #### [facility] [place] [address] Assessment Coordinator: Willy Rivera MD Calcium [Mass/Vol] 9.4 mg/dL Normal 8.6-10.4 [facility] Comment on above: Order Comment: FASTI NG:NO FASTING: NO Performed By: #### 1 0231 #### [facility] [place] [address] Assessment Coordinator: Willy Rivera MD Chloride [Moles/Vol] 104 mmol/L Normal 98-110 [facility] Comment on above: Order Comment: FASTI NG:NO FASTING: NO Performed By: #### 1 0231 #### [facility] [place] [address] Assessment Coordinator: Willy Rivera MD CO2 [Moles/Vol] 26 mmol/L Normal 20-32 [facility] Comment on above: Order Comment: FASTI NG:NO FASTING: NO Performed By: #### 1 0231 #### [facility] [place] [address] Assessment Coordinator: Willy Rivera MD Creatinine [Mass/Vol] 0.59 mg/dL Normal 0.50-1.05 [facility] Comment on above: Order Comment: FASTI NG:NO FASTING: NO Performed By: #### 1 0231 #### [facility] [place] [address] Assessment Coordinator: Willy Rivera MD GFR/1.73 sq M.predicted among non-blacks MDRD (S/P/Bld) [Vol rate/Area] 99 mL/min/{1.73_m2} Normal > OR = 60 [facility] Comment on above: Order Comment: FASTI NG:NO FASTING: NO Performed By: #### 1 0231 #### [facility] [place] [address] Assessment Coordinator: Willy Rivera MD Globulin (S) [Mass/Vol] 2.8 g/dL Normal 1.9-3.7 [facility] Comment on above: Order Comment: FASTI NG:NO FASTING: NO Performed By: #### 1 0231 #### [facility] [place] [address] Assessment Coordinator: Willy Rivera MD Glucose [Mass/Vol] 125 mg/dL Normal 65-139 [facility] Comment on above: Order Comment: FASTI NG:NO FASTING: NO Result Comment: Non-fasting reference interval For someone without known diabetes, a glucose value between 100 and 125 mg/dL is consistent with prediabetes and should be confirmed with a follow-up test. Performed By: #### 1 0231 #### [facility] [place] [address] Assessment Coordinator: Willy Rivera MD Potassium [Moles/Vol] 4.4 mmol/L Normal 3.5-5.3 [facility] Comment on above: Order Comment: FASTI NG:NO FASTING: NO Performed By: #### 1 0231 #### [facility] [address], [address] [place] [address] Assessment Coordinator: Willy Rivera MD Protein [Mass/Vol] 6.7 g/dL Normal 6.1-8.1 [facility] Comment on above: Order Comment: FASTI NG:NO FASTING: NO Performed By: #### 1 0231 #### [facility] [address], [address] [place] [address] Assessment Coordinator: Willy Rivera MD Sodium [Moles/Vol] 140 mmol/L Normal 135-146 [facility] Comment on above: Order Comment: FASTI NG:NO FASTING: NO Performed By: #### 1 0231 #### [facility] [address], [address] [place] [address] Assessment Coordinator: Willy Rivera MD Urea nitrogen [Mass/Vol] 13 mg/dL Normal 7-25 [facility] Comment on above: Order Comment: FASTI NG:NO FASTING: NO Performed By: #### 1 0231 #### [facility] [address], [address] [place] [address] Assessment Coordinator: Willy Rivera MD Laboratory - Hematology and Cell countson 10-19-2024 HbA1c (Bld) [Mass fraction] 7.5 % [facility] Online Dealer No Panel Informationon 10-19 [facility] Laboratory - Hematology and Cell countson 06-22-2024 HbA1c (Bld) [Mass fraction] 6.9 % [facility] Online Dealer No Panel Informationon 06-22 [facility] Physician Orderon 04-15-2023 Physician Order [id number]# 1.00CD:127 Normal [facility] Outside Recordson 06-08-2022 Outside Records [id number]#1.00CD:127 Normal [facility] Physician Orderon 06-08-2022 Physician Order [id number]#1.00CD:127 Normal [facility] XR LSPINE MIN 4 VIEWSon 10-0 XR LSPINE MIN 4 VIEWS EXAMINATION: XR LSPINE MIN 4 VIEWS HISTORY: Low back pain COMPARISON: No relevant comparison available. FINDINGS: BONES: Normal alignment with no acute fracture or spondylolisthesis. Mild degenerative spondylosis. Moderate diffuse arthropathy DISC SPACES: Normal. No significant disc height narrowing, subluxation, or endplate abnormality. PARASPINOUS: Negative. No paraspinous abnormality is seen. OTHER: Extensive atherosclerosis IMPRESSION: [id number] degenerative changes Electronically authenticated by: FAMILIA GRAVES Date: 2022-05-14 18:38 Normal [facility] MAMM SCREEN 3D TERRIE CADon 12-10-2021 MG MAMM SCREEN 3D TERRIE CAD Patient: ALEXIA ACEVES Exam Date: 12/10/2021 : 1955 Gender:F Ordering : DR GRAYSON ALBERT M.D. Admission #: [id number] Family : Order #: [id number] CLICK HERE TO VIEW EXAM RADIOLOGY REPORT PROCEDURE: MAMMOGRAM SCREENING 3D BILATERAL CAD COMPARISON: MG MAMM SCREEN TERRIE W CAD, 08/26/2020. INDICATIONS: Screening mammography Calculator Name NCI Breast Cancer Risk Assessment Tool 5 Year Breast Cancer Risk 1.20% Lifetime Breast Cancer Risk 4.70% Personal Breast Cancer No Personal Ovarian Cancer No Treatments None Family Cancers Grandmother-paternal with breast cancer at age 60; Father with esophegeal cancer at age 56. LOCATION: [facility] BREAST COMPOSITION: Almost entirely fatty. FINDINGS: DIAGNOSTIC CATEGORY 2--BENIGN FINDING: RIGHT BREAST: No significant suspicious finding. Scattered benign-appearing calcifications are present. Scattered benign-appearing nodules are present. No significant change has occurred. LEFT BREAST: No significant suspicious finding. Scattered benign-appearing calcifications are present. Scattered benign-appearing nodules are present. No significant change has occurred. RECOMMENDATIONS: ROUTINE MAMMOGRAM AND CLINICAL EVALUATION IN 12 MONTHS. PLEASE NOTE: A NORMAL MAMMOGRAM DOES NOT EXCLUDE THE POSSIBILITY OF BREAST CANCER. A CLINICALLY SUSPICIOUS PALPABLE LUMP SHOULD BE BIOPSIED. Dictated by: Garret Holliday M.D. on 01/09/2022 at 09:39 Approved by: Garret Holliday M.D. on 01/09/2022 at 09:45 Normal [facility] Vital Signs Date Time Vital Sign Value Performing Clinician Janet ballard 04-12-2025 10:12-0400 Body height 154.9 cm Radha Barba [employer] Work Phone: [facility] 04-12-2025 10:12-0400 Body mass index (BMI) [Ratio] 39.11 kg/m2 Radha Jose David [employer] Work Phone: [facility] 04-12-2025 10:12-0400 Body weight 93.89 kg Radha Barba [employer] Work Phone: [facility] 04-12-2025 10:12-0400 Diastolic blood pressure 72 mm[Hg] Radha Barba [employer] Work Phone: [facility] 04-12-2025 10:12-0400 Heart rate 87 /min Radha Barba [employer] Work Phone: [facility] 04-12-2025 10:12-0400 Respiratory rate 16 /min Radha Barba [employer] Work Phone: [facility] 04-12-2025 10:12-0400 SaO2% (BldA) [Mass fraction] 98 % Radha Barba [employer] Work Phone: [facility] 04-12-2025 10:12-0400 Systolic blood pressure 122 mm[Hg] Radha Barba [employer]ER Work Phone: [facility] 10-19-2024 13:25-0400 Body height 154.9 cm Amy Stein [employer] Work Phone: [facility] 10-19-2024 13:25-0400 Body mass index (BMI) [Ratio] 38.17 kg/m2 Amy Stein [employer] Work Phone: [facility] 10-19-2024 13:25-0400 Body weight 91.63 kg Amy Stein [employer] Work Phone: [facility] 10-19-2024 13:25-0400 Diastolic blood pressure 82 mm[Hg] Amy Stein [employer] Work Phone: [facility] 10-19-2024 13:25-0400 Heart rate 98 /min Amy Emil [employer] Work Phone: [facility] 10-19-2024 13:25-0400 SaO2% (BldA) [Mass fraction] 96 % Amy Mallard Bay [employer] Work Phone: [facility] 10-19-2024 13:25-0400 Systolic blood pressure 134 mm[Hg] Amy [place]ard [place] [employer] Work Phone: [facility] 10-03-2024 10:35-0500 Body height 154.9 cm Amy [place]ard [place] [employer] Work Phone: [facility] 10-03-2024 10:35-0500 Body mass index (BMI) [Ratio] 38.51 kg/m2 Amy Emil [employer] Work Phone: [facility] 10-03-2024 10:35-0500 Body weight 92.44 kg Amy Emil [employer] Work Phone: [facility] 10-03-2024 10:35-0500 Diastolic blood pressure 72 mm[Hg] Amy [place] [employer] Work Phone: [facility] 10-03-2024 10:35-0500 Heart rate 83 /min Amy [place]ard [place] [employer] Work Phone: [facility] 10-03-2024 10:35-0500 Respiratory rate 18 /min Amy Emil [employer] Work Phone: [facility] 10-03-2024 10:35-0500 SaO2% (BldA) [Mass fraction] 92 % Amy [place]ard [place] [employer] Work Phone: [facility] 10-03-2024 10:35-0500 Systolic blood pressure 128 mm[Hg] Amy Emil [employer] Work Phone: [facility] 06-22-2024 09:57-0500 Body height 154.9 cm Grayson Albert MD Work Phone: [facility] 06-22-2024 09:57-0500 Body mass index (BMI) [Ratio] 39.3 kg/m2 Grayson Albert MD Work Phone: [facility] 06-22-2024 09:57-0500 Body weight 94.35 kg Grayson Albert MD Work Phone: [facility] 06-22-2024 09:57-0500 Diastolic blood pressure 78 mm[Hg] Grayson Albert MD Work Phone: [facility] 06-22-2024 09:57-0500 Heart rate 78 /min Grayson Albert MD Work Phone: [facility] 06-22-2024 09:57-0500 SaO2% (BldA) [Mass fraction] 96 % Grayson Albert MD Work Phone: [facility] 06-22-2024 09:57-0500 Systolic blood pressure 132 mm[Hg] Grayson Albert MD Work Phone: [facility] 06-13-2024 14:14-0500 Body height 154.9 cm Garret Claudine DPM Work Phone: [facility] 06-13-2024 14:14-0500 Body mass index (BMI) [Ratio] 39.49 kg/m2 Garretramonita Chow DPM Work Phone: [facility] 06-13-2024 14:14-0500 Body weight 94.8 kg Garret Claudine DPM Work Phone: [facility] Healthcare Encounters Encounter Date Encounter Type Care Provider Facility Start: 04-12-2025 End: 04-12-2025 Bamboo flowsheet Radha Barba [employer] Work Phone: [facility] Start: 04-12-2025 End: 04-12-2025 Bamboo flowsheet Radha Barba [employer] Work Phone: [facility] Start: 04-12-2025 End: 04-12-2025 Patient encounter procedure Radha Barba [employer] Work Phone: [facility] Comment on above: Medicare annual well ness visit, subsequent (Primary Dx); Anxiety disorder, unspecified [...] myelopathy; Severe obesity (BMI 35.0-39.9) with comorbidity ([facility]); Depression with anxiety; Menopausal and postmenopausal disorder Start: 04-12-2025 End: 04-12-2025 ambulatory RADHA Castano BARBA Not Available Start: 10-19-2024 End: 10-19-2024 Office outpatient visit 25 minutes Amy Stein [employer] Work Phone: [facility] Comment on above: Type 2 diabetes anitra itus with other specified complication, with long-term current use of insulin (CMS/[facility]) (Primary Dx) Start: 10-19-2024 End: 10-19-2024 ambulatory AMY STEIN Not Available Start: 10-03-2024 End: 10-03-2024 Bamboo flowsheet Amy Stein [employer] Work Phone: [facility] Start: 10-03-2024 End: 10-03-2024 Bamboo flowsheet Amy Stein [employer] Work Phone: [facility] Start: 10-03-2024 End: 10-03-2024 Office outpatient visit 25 minutes Amy Stein [employer] Work Phone: [facility] Comment on above: Panlobular emphysema ([facility]) (Primary Dx); Shortness of breath; COVID-19; Acute cough Start: 10-03-2024 End: 10-03-2024 ambulatory AMY STEIN Not Available Start: 06-22-2024 End: 06-22-2024 Bamboo flowsheet Grayson Albert MD Work Phone: [facility] Start: 06-22-2024 End: 06-22-2024 Bamboo flowsheet Grayson Albert MD Work Phone: [facility] Start: 06-22-2024 End: 06-22-2024 Office outpatient visit 25 minutes Grayson Albert MD Work Phone: [facility] Comment on above: Severe obesity (BMI 35.0-39.9) with comorbidity ([facility]) (Primary Dx); Type 2 diabetes mellitus with other specified complication, with long-term current use of insulin ([facility]); Primary osteoarthritis involving multiple joints; Panlobular emphysema ([facility]); Elevated antinuclear antibody (KENDY) level Start: 06-22-2024 End: 06-22-2024 ambulatory GRAYSON ALBERT Not Available Start: 06-13-2024 End: 06-13-2024 Patient encounter procedure Garret Chwo DPM Work Phone: [facility] Comment on above: Dermatophytosis of n ail (Primary Dx); Dystrophic nail; Pain around toenail, right foot; Pain around toenail, left foot Start: 06-13-2024 End: 06-13-2024 ambulatory GARRET CHOW Not Available Start: 06-13-2024 End: 06-13-2024 Bamboo flowsheet Garret Chow DPM Work Phone: [facility] Start: 06-13-2024 End: 06-13-2024 Bamboo flowsheet Garret Chow DPM Work Phone: [facility] Start: 06-08-2022 End: 06-17-2022 Pre-admission assessment GRAYSON ALBERT [facility] Start: 05-14-2022 End: 05-15-[address] GRAYSON ALBERT Facility:[facility]1 Start: 12-10-2021 End: 12-11-[address] GRAYSON ALBERT Facility:[facility] Procedures Date Procedure Procedure Detail Performing Clinician Start: 04-12-2025 Hemoglobin glycosyla gonzalo a1c Radha Barba [employer] Work Phone: Start: 10-19-2024 Hemoglobin glycosyla gonzalo a1c Amy Stein [employer] Work Phone: Start: 06-22-2024 Hemoglobin glycosyla gonzalo a1c Grayson Albert MD Work Phone: Start: 12-30-2023 Mammography Garret Mercado her DPM Work Phone: Start: 09-26-2012 Colonoscopy Garret Mercado her DPM Work Phone: Plan of Treatment Date Care Activity Detail Author Start: 05-23-2026 Glaucoma screening Diabetes: Retinopathy Screening [facility] Start: 04-12-2026 Medicare Annual Wellness (AWV) Medicare Annual Wellness (AWV) [facility] Start: 07-12-2025 Hemoglobin A1c measurement Diabetes: Hemoglobin A1C [facility] Start: 05-17-2025 End: 05-17-2025 Patient encounter procedure 05/17/2025 10:00 AM EDT Office Visit [facility] [address] [place] [phone] Radha Barba NP [address] [place] [address] [facility] Start: 05-02-2025 End: 05-02-2025 ambulatory 05/02/2025 10:30 AM EDT Treatment [facility] [address] [place] [address] Pedro Turcios PTA [facility] Start: 04-30-2025 End: 04-30-2025 ambulatory 04/30/2025 10:30 AM EDT Treatment [facility] [address] [place] [address] Pedro Turcios PTA [facility] Start: 04-27-2025 End: 04-27-2025 ambulatory 04/27/2025 10:30 AM EDT Treatment [facility] [address] [place] [address] Pedro Turcios PTA [facility] Start: 04-25-2025 End: 04-25-2025 ambulatory 04/25/2025 11:30 AM EDT Evaluation [facility] [address] [place] [address] Corry Hutchinson, PT [facility] Start: 04-12-2025 End: 04-12-2026 25-hydroxyvitamin D3 [Mass/volume] in Serum or Plasma Vitamin D 25 hydroxy Total Lab Routine Vitamin D deficiency Expected: 04/12/2025 (Approximate), Expires: 04/12/2026 [facility] Comment on above: Expected: 04/12/2025 (Approximate), Expi res: 04/12/2026 Start: 04-12-2025 End: 04-12-2026 CBC W Auto Differential panel - Blood CBC and differential Lab Routine Vitamin D deficiency Type 2 diabetes mellitus with other specified complication, with long-term current use of insulin (HCC) Hypercholesterolemia Expected: 04/12/2025 (Approximate), Expires: 04/12/2026 [facility] Comment on above: Expected: 04/12/2025 (Approximate), Expi res: 04/12/2026 Start: 04-12-2025 End: 04-12-2026 Comprehensive metabolic 2000 panel - Serum or Plasma Comprehensive metabolic panel Lab Routine Vitamin D deficiency Type 2 diabetes mellitus with other specified complication, with long-term current use of insulin (HCC) Hypercholesterolemia Expected: 04/12/2025 (Approximate), Expires: 04/12/2026 [facility] Comment on above: Expected: 04/12/2025 (Approximate), Expi res: 04/12/2026 Start: 04-12-2025 End: 06-12-2026 DBT Breast - bilateral screening Bilateral screening mammogram with tomosynthesis Imaging Routine Encounter for other screening for malignant neoplasm of breast Expected: 04/12/2025, Expires: 06/12/2026 [facility] Work Phone: Comment on above: Expected: 04/12/2025, Expires: Start: 04-12-2025 End: 04-12-2026 DXA Skeletal system Views for bone density DEXA bone density Imaging Routine Estrogen deficiency Expected: 04/12/2025 (Approximate), Expires: 04/12/2026 [facility] Comment on above: Expected: 04/12/2025 (Approximate), Expi res: 04/12/2026 Start: 04-12-2025 End: 04-12-2026 Lipid 1996 panel - Serum or Plasma Lipid panel Lab Routine Hypercholesterolemia Expected: 04/12/2025 (Approximate), Expires: 04/12/2026 [facility] Comment on above: Expected: 04/12/2025 (Approximate), Expi res: 04/12/2026 Start: 04-12-2025 End: 04-12-2026 Microalbumin/Creatinin e panel in random Urine Microalbumin / creatinine urine ratio Lab Routine Type 2 diabetes mellitus with other specified complication, with long-term current use of insulin (HCC) Expected: 04/12/2025 (Approximate), Expires: 04/12/2026 [facility] Comment on above: Expected: 04/12/2025 (Approximate), Expi res: 04/12/2026 Start: 04-12-2025 End: 04-12-2026 Thyrotropin [Units/volume] in Serum or Plasma TSH Lab Routine Thyroid disorder screening Expected: 04/12/2025 (Approximate), Expires: 04/12/2026 [facility] Comment on above: Expected: 04/12/2025 (Approximate), Expi res: 04/12/2026 Start: 04-12-2025 End: 04-12-2026 XR Shoulder - left 2 Views XR shoulder 2+ views left Imaging Routine Acute pain of left shoulder Expected: 04/12/2025 (Approximate), Expires: 04/12/2026 [facility] Comment on above: Expected: 04/12/2025 (Approximate), Expi res: 04/12/2026 Start: 04-12-2025 End: 04-12-2025 Patient encounter procedure 04/12/2025 10:00 AM EDT [facility] [address] [facility] [address] [place] [address] Radha Barba NP [address] [place] [address] [facility] Comment on above: Arrived Start: 04-09-2025 Influenza vaccination Influenza Vaccine (#1) [facility] Start: 03-22-2025 Medicare Annual Wellness (AWV) Medicare Annual Wellness (AWV) [facility] Start: 03-15-2025 Urine screening for protein Diabetes: Urine Protein Screening [facility] Start: 01-19-2025 Hemoglobin A1c measurement Diabetes: Hemoglobin A1C [facility] Start: 12-29-2024 Screening for malignant neoplasm of breast Mammogram [facility] Start: 10-19-2024 End: 10-19-2025 Comprehensive metabolic 2000 panel - Serum or Plasma Comprehensive metabolic panel Lab Routine Type 2 diabetes mellitus with other specified complication, with long-term current use of insulin ([facility]) Expected: 10/19/2024 (Approximate), Expires: 10/19/2025 [facility] Work Phone: Comment on above: Expected: 10/19/2024 (Approximate), Expi res: 10/19/2025 Start: 10-11-2024 End: 10-11-2024 Patient encounter procedure 10/11/2024 1:30 PM EST Procedure Visit [facility] [address] [facility] [place] [phone] Garert Chow [address] [place] [address] [facility] Start: 10-03-2024 End: 10-03-2024 Patient encounter procedure 10/03/2024 10:30 AM EST Office Visit [facility] [address] [facility] [address] [place] [address] Amy Stein NP [address] [facility] [address] [place] [address] Arrived [facility] Comment on above: Arrived Start: 09-25-2024 End: 09-25-2024 Patient encounter procedure 09/25/2024 10:00 AM EST Office Visit [facility] [address] [place] [address] Grayson Albert MD [address] [place] [address] [facility] Start: 09-22-2024 Hemoglobin A1c measurement Diabetes: Hemoglobin A1C [facility] Start: 06-22-2024 Hemoglobin A1c measurement Diabetes: Hemoglobin A1C [facility] Start: 06-22-2024 End: 06-22-2024 Patient encounter procedure 06/22/2024 10:00 AM EST Office Visit [facility] [address] [facility] [address] [place] [id number] Grayson Albert MD [address] [facility] [address] [place] [address] [facility] Start: 06-13-2024 End: 06-13-2024 Patient encounter procedure 06/13/2024 2:15 PM EST Procedure Visit [facility] [address] [place] [phone] Garret Chow DPM [address] [place], [place] [id number] Arrived [facility] Comment on above: Arrived Start: 09-26-2022 Screening for malignant neoplasm of colon [facility] Start: 1976 Pneumococcal Vaccine: 65+ Years (1 of 2 - PCV) Pneumococcal Vaccine: 65+ Years (1 of 2 - PCV) [facility] Start: 1963 Pneumococcal Vaccine: 65+ Years (1 of 2 - PCV) Pneumococcal Vaccine: 65+ Years (1 of 2 - PCV) [facility] Start: 1957 Screening for malignant neoplasm of colon [facility] Immunizations Immunization Date Immunization Notes Care Provider Fa cili 05-18-2024 influenza, high dose seasonal, preservative-free Grayson Albert MD Work Phone: [facility] 05-18-2024 RSV, recombinant, pr otein subunit RSVpreF, adjuvant reconstitu, 120mcg/0.5mL, PF (Arexvy) Grayson Albert MD Work Phone: [facility] 05-18-2024 influenza virus vacc ine, unspecified formulation Radah Barba NP Work Phone: [facility] 05-13-2022 influenza, injectabl e, quadrivalent, preservative free Garret Rusher DPM Work Phone: [facility] 04-22-2021 influenza, injectabl e, quadrivalent, preservative free Garret Rusher DPM Work Phone: [facility] 05-02-2020 influenza, injectabl e, quadrivalent, preservative free Garret Rusher DPM Work Phone: [facility] 05-26-2017 seasonal influenza, intradermal, preservative free Garret Rusher DPM Work Phone: [facility] 04-10-2015 seasonal influenza, intradermal, preservative free Garret Rusher DPM Work Phone: [facility] Payers Date Payer Category Payer Private Health Insurance [id number] 2022 Medicare [id number] 1959 Medicare [id number] 1959 Unknown [id number] 1957 Unknown [id number] 1957 Unknown [id number] [id number] 1957 Unknown [id number] 1957 Unknown [id number] [id number] 1957 Unknown [id number] [id number] [id number] 1957 Unknown [id number] [id number] [id number] 1957 Unknown [id number] [id number] Unknown [id number] Social History Date Type Detail Facility Tobacco smoking status Momo elizabeth [facility] Start: 02-21-2024 End: 04-11-2025 Sex Assigned At Female Blake Reece [facility] Start: 03-22-2024 [facility] End: 11-07-2022 History of tobacco use Cigarette Smoker [facility] Start: 03-22-2024 End: 04-11-2025 Cigarettes smoked current (pack per day) - Reported 0.5 [facility] Work Phone: Start: 03-22-2024 End: 06-13-2024 Tobacco use and exposure Smokeless tobacco non-user [facility] Start: 03-22-2024 End: 04-12-2025 Alcoholic beverage intake Lifetime non-drinker (finding) [facility] How often do you nee d to have someone help you when you read instructions, pamphlets, or other written material from your doctor or pharmacy [SILS] Never [facility] Work Phone: Within the last year , have you been afraid of your partner or ex-partner? No [facility] Do you belong to any clubs or organizations such as jehovah's witness groups, unions, fraternal or athletic groups, or school groups? Yes [facility] Are you now , , , , never or living with a partner? [facility] How often to you hav e a drink containing alcohol? Never [facility] How hard is it for y ou to pay for the very basics like food, housing, medical care, and heating Somewhat hard [facility] Do you feel stress - tense, restless, nervous, or anxious, or unable to sleep at night because your mind is troubled all the time - these days [OSQ] Not at all [facility] (I/We) worried wheth er (my/our) food would run out before (I/we) got money to buy more. Never true [facility] Start: 03-09-2023 Alcohol Comment caffeine: Yes, yvette e [facility] Start: 1955 Sex assigned at Not on file [facility] Start: 11-05-2024 Tobacco smoking stat us NHIS Ex-smoker [facility] End: 11-07-2022 History of tobacco use Current smoker [facility] How hard is it for y ou to pay for the very basics like food, housing, medical care, and heating Not very hard [facility] Do you feel stress - tense, restless, nervous, or anxious, or unable to sleep at night because your mind is troubled all the time - these days [OSQ] Only a little [facility] (I/We) worried wheth er (my/our) food would run out before (I/we) got money to buy more. Sometimes true [facility] Medical Equipment Procedure Code Equipment Code Equipment Origin al Text Equipment Identifier Dates 1 each by Other route in the morning and 1 each in the evening and 1 each before bedtime. [id number] Start: 05-11-2024 Functional Status Date Assessment Result Facility 04-12-2025 Patient Health Quest ionnaire 2 item (PHQ-2) [Reported] [facility] 04-12-2025 PHQ-9 quick depressi on assessment panel [Reported.PHQ] [facility] Clinical Notes 06-13-2024 to 04-12-2025 Radha Barba NP - 04/12/2025 10:00 AM EDTPatient Felix Stein NP - 10/19/2024 1:30 PM Miguel Angel Stein NP - 10/03/2024 10:30 AM Abeba Albert MD - 06/22/2024 10:00 AM EST Note Date & Type Note Facility 04-12-2025 History of Present illness Narrative Images from the original note were not included. Subjective : Chief Complaint: Alexia Aceves is an 69 y.o. female here [...] 81 mg by mouth in the morning. Irlsljt-Iswvmgsrajk-Forlxpvttc (Breztri Aerosphere) 160-9-4.8 MCG/ACT aerosol Inhale 2 puffs in the morning and [...] is a 2 unit dial. The computer Octopusappem will not allow me to correct 6 [...] Grayson Albert MD as PCP - ACO Reach Meka Cardenas LPN Medicare Annual Visit Over the [...] Yes Cognitive Screening Three Word Registration: Banana, [place], Chair Clock Drawing: Normal Clock - 2 Three Word Recall: All 3 words correct - 3 Total Score (0-5 Points): 5 Pain Assessment Pain Score: 5 - Moderate pain Advance Care Planning Do you have a living will?: Yes Do you have a medical power of litigation attorney?: Yes Who is your medical power of litigation attorney?: Jacky Ariza Objective : BP 122/72 Pulse 87 Resp 16 Ht 5' 1 Wt 207 lb SpO2 98% BMI 39.11 kg/m No results found. Physical Exam Vitals reviewed. [...] Encounter Procedures Bilateral screening mammogram with tomosynthesis [place] Standing Status: Future Expected Date: 04/12/2025 Expiration [...] factors. LDL-C is now calculated using the Ashwin-Nice calculation, which is a validated novel method providing better accuracy than the Friedewald equation in the estimation of LDL-C. Ashwin SS et al. SARAH. 2013;310(19): 6643-9008 (http://education.Hitlab .Quotefish/faq/LTA990) CHOL/HDLC RATIO <5.0 (calc) 3.1 4.4 NON [...] dt increased pain and discomfort, decreased ROM. She reports that she is in agreement with this [...] inhaler 2 puff, Every 4 hours PRN Hhyrevl-Kzfkxconesf-Rvumkcavol (Breztri Aerosphere) 160-9-4.8 MCG/ACT aerosol 12. Arthritis of left knee Stable 13. Lumbosacral spondylosis without myelopathy Stable 14. Severe obesity (BMI 35.0-39.9) with comorbidity (CMS-HCC) Stable 15. Depression with anxiety Celexa increased tod 20 mg daily today. 16. Menopausal and postmenopausal disorder Stable.Continue Celexa as ordered. Electronically signed by Radha Barba NP on April 12, 2025 documented in this encounter [facility] 04-12-2025 Instructions Radha Barba NP - 04/12/2025 10:00 AM EDT Referral to Dermatology for a preventative skin check. Referral to therapy for left shoulder pain. Celexa increased today. documented in this encounter [facility] 10-19-2024 History of Present illness Narrative Images from the original note were not included. HPI Med Refill Additional comments: Novolog-- [facility] Last edited by Ita Caal LPN on 10/19/2024 1:29 PM. Subjective Patient ID: Alexia Aceves is a 69 y.o. female who presents for Diabetes and Med Refill (Novolog-- [facility]). Diabetes Mellitus Patient presents for follow up of diabetes. Current symptoms include: couple episodes of hypoglycemia Patient denies foot ulcerations, polydipsia, polyuria, and vomiting. Evaluation to date has included: fasting blood sugar, fasting lipid panel, and hemoglobin A1C. Home sugars: BGs range between 80 and 130 Pt still having hypos occ. Is decreasing novolog due to hypo's Diabetes She presents for her follow-up diabetic visit. Pertinent negatives for diabetes include no chest pain and no fatigue. Risk factors for coronary artery disease include sedentary lifestyle. Current diabetic treatment includes diet and insulin injections. She is compliant with treatment all of the time. She is following a generally unhealthy diet. Meal planning includes avoidance of concentrated sweets. She has not had a previous visit with a dietitian. Her home blood glucose trend is decreasing steadily. Med Refill Pertinent negatives include no chest pain or fatigue. Current Outpatient Medications on File Prior to Visit Medication Sig Dispense Refill albuterol HFA (Ventolin HFA) 90 mcg/act inhaler Inhale 2 puffs every 4 (four) hours if needed for wheezing 17 g 11 aspirin 81 MG EC tablet Take 81 mg by mouth in the morning. Mihqiag-Zmsshrwaocv-Byxgdmmlne (Breztri Aerosphere) 160-9-4.8 MCG/ACT aerosol Inhale 2 puffs in the morning and 2 puffs before bedtime. 10.7 g 11 citalopram (CeleXA) 10 MG tablet TAKE 1 TABLET BY MOUTH EVERY DAY 100 tablet 3 glucose blood (Accu-Chek Zoe Plus) test strip [...] 2 unit dial,) 300 UNIT/ML injection Inject 60 Units under the skin at bedtime 6 mL 12 rosuvastatin (Crestor) 20 MG tablet Take 1 tablet (20 mg) by mouth Daily 30 tablet 11 tiZANidine (Zanaflex) 4 MG tablet Take 1 tablet (4 mg) by mouth in the morning and 1 tablet (4 mg) in the evening and 1 tablet (4 mg) before bedtime. 30 tablet 1 [DISCONTINUED] guaiFENesin-codeine (Robitussin-AC) 100-10 MG/5ML syrup Take 5 mL by mouth 4 (four) times a day as needed for cough for up to 10 days 237 mL 0 [DISCONTINUED] insulin glargine (Toujeo Max SoloStar) 300 UNIT/ML injection Inject 60 Units under the skin at bedtime 6 mL 12 [DISCONTINUED] levoFLOXacin (Levaquin) 500 MG tablet Take 1 tablet (500 mg) by mouth Daily for 10 days 10 tablet 0 [DISCONTINUED] predniSONE (Deltasone) 10 MG tablet Take 4 tablets (40 mg) by mouth Daily for 3 days, THEN 3 tablets (30 mg) Daily for 3 days, THEN 2 tablets (20 mg) Daily for 3 days, THEN 1 tablet (10 mg) Daily for 3 days. 30 tablet 0 No current facility-administered medications on file prior to visit. I have reviewed and reconciled the history and medication list with the patient today. No Known Allergies Social History Tobacco Use Smoking status: Former Current packs/day: 0.00 Average packs/day: 0.5 packs/day for 10.0 years (5.0 ttl pk-yrs) Types: Cigarettes Quit date: 11/07/2022 Years since quittin.9 Smokeless tobacco: Never Vaping Use Vaping status: Never Used Substance Use Topics Alcohol use: Never Comment: caffeine: Yes, coffee Drug use: Never Family History Problem Relation Name Age of Onset Diabetes Mother Vicki Heart disease Mother Vicki Cancer Father Alexia Obesity Sibling Past Medical History: Diagnosis Date Anxiety Arthritis COPD (chronic obstructive pulmonary disease) (CMS/HCC) Depression (CMS/HCC) Diabetes mellitus (CMS/HCC) type 2 Hypercholesteremia (CMS/HCC) Past Surgical History: Procedure Laterality Date BREAST SURGERY Right 2005 breast biopsy CARPAL TUNNEL RELEASE Bilateral 1992 SECTION, LOW TRANSVERSE x3 CHOLECYSTECTOMY 2010 DIABETES EYE EXAM 2013 NERVE BLOCK Right 10/29/2017 SI joint Visit Vitals Ht 5' 1 BMI 38.51 kg/m Smoking Status Former BSA 1.99 m Review of Systems Constitutional: Negative for fatigue. HENT: Negative. Eyes: Negative. Respiratory: Negative. Cardiovascular: Negative for chest pain. Gastrointestinal: Negative. Genitourinary: Negative. Musculoskeletal: Negative. Skin: Negative. Neurological: Negative. Psychiatric/Behavioral: Negative. Endocrine: Negative. Objective Physical Exam Vitals reviewed. Constitutional: Appearance: Normal appearance. HENT: Head: Normocephalic. Nose: Nose normal. Mouth/Throat: Mouth: Mucous membranes are moist. Pharynx: Oropharynx is clear. Eyes: Conjunctiva/sclera: Conjunctivae normal. Cardiovascular: Rate and Rhythm: Normal rate. Pulmonary: Effort: Pulmonary effort is normal. Skin: General: Skin is warm and dry. Neurological: General: No focal deficit present. Mental Status: She is alert and oriented to person, place, and time. Psychiatric: Mood and Affect: Mood normal. Behavior: Behavior normal. Thought Content: Thought content normal. Assessment/Plan Diagnoses and all orders for this visit: Type 2 diabetes mellitus with other specified complication, with long-term current use of insulin ([facility]) - POCT Glycated hemoglobin, total - Comprehensive metabolic panel; Future - insulin glargine (Toujeo Max Solostar, 2 unit dial,) 300 UNIT/ML injection; Inject 45 Units under the skin at bedtime Pt is to have 44 units instead of 45 units as this is a 2 unit dial. The computer [employer] will not allow me to correct Toujeo decreased to 44 units due low blood sugars. Using an elliptical daily. We discussed how to manage the low blood sugars. We discussed today, the importance of proper diabetic control. We discussed possible complications of diabetes, including loss of vision, renal failure, increased risk of heart attacks and strokes, blood vessel and/or nerve damage. We discussed the recommended changes to reduce your blood sugars and minimize the risk of these complications. We discussed diabetic goals, including keeping A1C <7.0% and blood pressure < 130/70. The plan for achieving these goals is adherence to medications, diet, and regular activity as discussed during today's visit. We discussed current barriers to achieving these goals. We discussed dietary goals. We discussed calorie counting, as well as decreasing carbohydrate and simple sugar intake. Reviewed portion control with the patient. If the patient still has questions on this, a referral to a Dietitian can be arranged. I reviewed medications that aid in diabetic control. We discussed proper dosing and educated the patient on possible side effects and complications. The patient verbalized understanding of these instructions. No follow-ups on file. documented in this encounter [facility] 10-03-2024 History of Present illness Narrative Images from the original note were not included. Subjective Patient ID: Alexia Aceves is a 69 y.o. female who presents for a cough. Alexia presents today for a positive Covid test on Wednesday. She is having SOB with walking and had a cough that is keeping her up at night. This has been going on for a week. URI This is a new problem. The current episode started 1 to 4 weeks ago. The problem has been gradually worsening. There has been no fever. Associated symptoms include congestion and coughing. She has tried acetaminophen and increased fluids for the symptoms. The treatment provided no relief. Current Outpatient Medications on File Prior to Visit Medication Sig Dispense Refill aspirin 81 MG EC tablet Take 81 mg by mouth in the morning. citalopram (CeleXA) 10 MG tablet TAKE 1 TABLET BY MOUTH EVERY DAY 100 tablet 3 Fluticasone Furoate-Vilanterol (Breo Ellipta) 100-25 MCG/ACT aerosol powder Inhale 1 puff in the morning. glucose blood (Accu-Chek Zoe Plus) test strip [...] 27 mL 3 insulin glargine (Toujeo Max SoloStar) 300 UNIT/ML injection Inject 60 Units under the skin at bedtime 6 mL 12 rosuvastatin (Crestor) 20 MG tablet Take 1 tablet (20 mg) by mouth Daily 30 tablet 11 tiZANidine (Zanaflex) 4 MG tablet Take 1 tablet (4 mg) by mouth in the morning and 1 tablet (4 mg) in the evening and 1 tablet (4 mg) before bedtime. 30 tablet 1 No current facility-administered medications on file prior to visit. I have reviewed and reconciled the history and medication list with the patient today. No Known Allergies Social History Tobacco Use Smoking status: Former Current packs/day: 0.00 Average packs/day: 0.5 packs/day for 10.0 years (5.0 ttl pk-yrs) Types: Cigarettes Quit date: 11/07/2022 Years since quittin.9 Smokeless tobacco: Never Vaping Use Vaping status: Never Used Substance Use Topics Alcohol use: Never Comment: caffeine: Yes, coffee Drug use: Never Family History Problem Relation Name Age of Onset Diabetes Mother Vicki Heart disease Mother Vicki Cancer Father Alexia Obesity Sibling Past Medical History: Diagnosis Date Anxiety Arthritis COPD (chronic obstructive pulmonary disease) (CMS/HCC) Depression (CMS/HCC) Diabetes mellitus (CMS/HCC) type 2 Hypercholesteremia (CMS/HCC) Past Surgical History: Procedure Laterality Date BREAST SURGERY Right 2005 breast biopsy CARPAL TUNNEL RELEASE Bilateral 1992 SECTION, LOW TRANSVERSE x3 CHOLECYSTECTOMY 2011 DIABETES EYE EXAM 2013 NERVE BLOCK Right 10/29/2017 SI joint Visit Vitals Smoking Status Former Review of Systems HENT: Positive for congestion. Respiratory: Positive for cough. Objective Physical Exam Vitals reviewed. Constitutional: Appearance: Normal appearance. HENT: Head: Normocephalic. Nose: Congestion present. Mouth/Throat: Mouth: Mucous membranes are moist. Pharynx: Oropharynx is clear. Eyes: Conjunctiva/sclera: Conjunctivae normal. Cardiovascular: Rate and Rhythm: Normal rate. Pulmonary: Effort: Pulmonary effort is normal. Breath sounds: Rhonchi present. Comments: Moist cough Skin: General: Skin is warm and dry. Neurological: General: No focal deficit present. Mental Status: She is alert and oriented to person, place, and time. Psychiatric: Mood and Affect: Mood normal. Behavior: Behavior normal. Thought Content: Thought content normal. Assessment/Plan Diagnoses and all orders for this visit: Panlobular emphysema (CMS/HCC) - albuterol HFA (Ventolin HFA) 90 mcg/act inhaler; Inhale 2 puffs every 4 (four) hours if needed for wheezing - Pwhomcx-Pzrolqewrbh-Ysbbzexnta (Breztri Aerosphere) 160-9-4.8 MCG/ACT aerosol; Inhale 2 puffs in the morning and 2 puffs before bedtime. - predniSONE (Deltasone) 10 MG tablet; Take 4 tablets (40 mg) by mouth Daily for 3 days, THEN 3 tablets (30 mg) Daily for 3 days, THEN 2 tablets (20 mg) Daily for 3 days, THEN 1 tablet (10 mg) Daily for 3 days. This is a chronic medical condition that is stable since last assessment. No changes in treatment are suggested at this time. Shortness of breath - albuterol HFA (Ventolin HFA) 90 mcg/act inhaler; Inhale 2 puffs every 4 (four) hours if needed for wheezing - predniSONE (Deltasone) 10 MG tablet; Take 4 tablets (40 mg) by mouth Daily for 3 days, THEN 3 tablets (30 mg) Daily for 3 days, THEN 2 tablets (20 mg) Daily for 3 days, THEN 1 tablet (10 mg) Daily for 3 days. - levoFLOXacin (Levaquin) 500 MG tablet; Take 1 tablet (500 mg) by mouth Daily for 10 days Advised patient is very contagious. Given this the patient should complete a minimum of a 5 day self-quarantine and must be fever free for 24 hours and all symptoms must be improving before ending the quarantine. Pt is to then continue to wear a mask for an additional 5 days after completing quarantine. Note for work will be provided for the patient. Can use over the counter cold and flu medications as needed for symptoms. Tylenol prn for fever or discomfort. Can try Vitamin D and Zinc supplements. Encouraged patient to stay hydrated and get plenty of rest. If symptoms worsen, i.e. significant worsening of SOB or fever > 104, should go to the ER but would recommend calling ahead to let them know the patient is Covid positive. Take medication as ordered as her COVID positive has now turned into a secondary infection. COVID-19 - albuterol HFA (Ventolin HFA) 90 mcg/act inhaler; Inhale 2 puffs every 4 (four) hours if needed for wheezing - predniSONE (Deltasone) 10 MG tablet; Take 4 tablets (40 mg) by mouth Daily for 3 days, THEN 3 tablets (30 mg) Daily for 3 days, THEN 2 tablets (20 mg) Daily for 3 days, THEN 1 tablet (10 mg) Daily for 3 days. - levoFLOXacin (Levaquin) 500 MG tablet; Take 1 tablet (500 mg) by mouth Daily for 10 days Advised patient is very contagious. Given this the patient should complete a minimum of a 5 day self-quarantine and must be fever free for 24 hours and all symptoms must be improving before ending the quarantine. Pt is to then continue to wear a mask for an additional 5 days after completing quarantine. Note for work will be provided for the patient. Can use over the counter cold and flu medications as needed for symptoms. Tylenol prn for fever or discomfort. Can try Vitamin D and Zinc supplements. Encouraged patient to stay hydrated and get plenty of rest. If symptoms worsen, i.e. significant worsening of SOB or fever > 104, should go to the ER but would recommend calling ahead to let them know the patient is Covid positive. Take medication as ordered as her COVID positive has now turned into a secondary infection. Acute cough - guaiFENesin-codeine (Robitussin-AC) 100-10 MG/5ML syrup; Take 5 mL by mouth 4 (four) times a day as needed for cough for up to 10 days - predniSONE (Deltasone) 10 MG tablet; Take 4 tablets (40 mg) by mouth Daily for 3 days, THEN 3 tablets (30 mg) Daily for 3 days, THEN 2 tablets (20 mg) Daily for 3 days, THEN 1 tablet (10 mg) Daily for 3 days. - levoFLOXacin (Levaquin) 500 MG tablet; Take 1 tablet (500 mg) by mouth Daily for 10 days Use cough drops, warm tea with honey, cough syrup. Do not drive or operate heavy machinery while on the cough syrup. Tessalon perles not ordered as pt refused. No follow-ups on file. documented in this encounter [facility] 06-22-2024 History of Present illness Narrative Images from the original note were not included. HPI due for repeat colonoscopy Additional comments: Ad abn colonoscopy 2012 pt declines colonoscopy Last edited by Ita Caal LPN on 06/22/2024 10:07 AM. Subjective Patient ID: Alexia Aceves is a 69 y.o. female who presents for Diabetes and due for repeat colonoscopy (Ad abn colonoscopy 2012 pt declines colonoscopy). Diabetes Mellitus Patient presents for follow up of diabetes. Current symptoms include: couple episodes of hypoglycemia Patient denies foot ulcerations, polydipsia, polyuria, and vomiting. Evaluation to date has included: fasting blood sugar, fasting lipid panel, and hemoglobin A1C. Home sugars: BGs range between 110 and 130 Pt still having hypos she has not taken any novolog this week due to lower blood sugars Diabetes Pertinent negatives for diabetes include no chest pain and no fatigue. Current Outpatient Medications on File Prior to Visit Medication Sig Dispense Refill aspirin 81 MG EC tablet Take 81 mg by mouth in the morning. citalopram (CeleXA) 10 MG tablet TAKE 1 TABLET BY MOUTH EVERY DAY 100 tablet 3 Fluticasone Furoate-Vilanterol (Breo Ellipta) 100-25 MCG/ACT aerosol powder Inhale 1 puff in the morning. glucose blood (Accu-Chek Zoe Plus) test strip [...] 27 mL 3 insulin glargine (Toujeo Max SoloStar) 300 UNIT/ML injection Inject 60 Units under the skin at bedtime 6 mL 12 rosuvastatin (Crestor) 20 MG tablet Take 1 tablet (20 mg) by mouth Daily 30 tablet 11 tiZANidine (Zanaflex) 4 MG tablet Take 1 tablet (4 mg) by mouth in the morning and 1 tablet (4 mg) in the evening and 1 tablet (4 mg) before bedtime. 30 tablet 1 No current facility-administered medications on file prior to visit. I have reviewed and reconciled the history and medication list with the patient today. No Known Allergies Social History Tobacco Use Smoking status: Former Current packs/day: 0.00 Average packs/day: 0.5 packs/day for 10.0 years (5.0 ttl pk-yrs) Types: Cigarettes Quit date: 11/07/2022 Years since quittin.6 Smokeless tobacco: Never Substance Use Topics Alcohol use: Never Comment: caffeine: Yes, coffee Drug use: Never Family History Problem Relation Name Age of Onset Diabetes Mother Vicki Heart disease Mother Vicki Cancer Father Alexia Obesity Sibling Past Medical History: Diagnosis Date Anxiety Arthritis COPD (chronic obstructive pulmonary disease) (CMS/HCC) Depression (CMS/HCC) Diabetes mellitus (CMS/HCC) type 2 Hypercholesteremia (CMS/HCC) Past Surgical History: Procedure Laterality Date BREAST SURGERY Right 2004 breast biopsy CARPAL TUNNEL RELEASE Bilateral 1992 SECTION, LOW TRANSVERSE x3 CHOLECYSTECTOMY 2010 DIABETES EYE EXAM 2013 NERVE BLOCK Right 10/29/2017 SI joint Visit Vitals BP 132/78 Pulse 78 Ht 5' 1 Wt 208 lb SpO2 96% BMI 39.30 kg/m Smoking Status Former BSA 2.01 m Review of Systems Constitutional: Negative for fatigue. Cardiovascular: Negative for chest pain. Objective Physical Exam Constitutional: General: She is not in acute distress. Appearance: Normal appearance. She is well-developed. HENT: Head: Normocephalic and atraumatic. Eyes: General: No scleral icterus. Conjunctiva/sclera: Conjunctivae normal. Cardiovascular: Rate and Rhythm: Normal rate and regular rhythm. Heart sounds: Normal heart sounds. No murmur heard. Pulmonary: Effort: Pulmonary effort is normal. No respiratory distress. Breath sounds: Normal breath sounds. No wheezing, rhonchi or rales. Skin: General: Skin is warm and dry. Neurological: General: No focal deficit present. Mental Status: She is alert and oriented to person, place, and time. Psychiatric: Mood and Affect: Mood normal. Behavior: Behavior normal. Office Visit on 06/22/2024 Component Date Value Ref Range Status Hemoglobin A1C 06/22/2024 6.9 Final Documentation on 05/24/2024 Component Date Value Ref Range Status RESULTS 05/23/2024 abn Final Assessment/Plan Diagnoses and all orders for this visit: Severe obesity (BMI 35.0-39.9) with comorbidity (CMS/HCC) Type 2 diabetes mellitus with other specified complication, with long-term current use of insulin (CMS/HCC) - POCT Glycated hemoglobin, total - Having mild hypos. CGM data reviewed. Stop short acting insulin, not needed. Primary osteoarthritis involving multiple joints Panlobular emphysema (CMS/HCC) Elevated antinuclear antibody (KENDY) level Follow up in about 2 months (around 08/22/2024) for DM- A1C. documented in this encounter [facility] 06-13-2024 History of Present illness Narrative Images from the original note were not included. Subjective Patient ID: Alexia Aceves is a 69 y.o. female who presents for Nail care (Alexia Aceves is a 69 y.o. female who presents for DM Foot Care PCP: Dr. Roosevelt ROMERO 03/22/24, A1C: 8.1 BS 95:, SS: 7.5.). HPI HPI Onychomycosis/Toenail Fungus: Symptomatic toenail deformity. Location: multiple digits with thickened, discolored and deformed toenails; problematic/symptomatic; bilateral great toenails are notably worse. Duration: several years duration. Severity of symptoms: mild-moderate; impacting her ability to wear shoes comfortably. Onset: gradual, without known injury or trauma. Status: gradual progressive deformity and discoloration; problematic symptomatic over the past month or so. Context: hard to trim, hard to reach; self-care is increasingly more difficult and less effective; increasing risk exposure. Family members unable to provide effective care. Characteristics: discolored, thickened, pain , pressure , elongated , ingrowing , crusty , /lifting; without bleeding or drainage. Relieved by: palliative care measures have provided favorable transient symptom relief; last provided here April 2023. Previous Treatment: completed most recent 90 day course of oral Lamisil therapy late February 2023, with no adverse effects. Maintains improvement from baseline. Risk factors: type II diabetes/IDDM. Medical comorbidities. Polypharmacy. Aspirin therapy. mobility, flexibility and dexterity restraints. Toenail deformity. Digital and/or shoe trauma and related complications. Aggravated by: shoe gear , pressure , walking; catching and snagging on clothing etc.. PCP: Dr. Albert. Medications Current Outpatient Medications: aspirin 81 MG EC tablet, Take 81 mg by mouth in the morning., Disp: , Rfl: citalopram (CeleXA) 10 MG tablet, TAKE 1 TABLET BY MOUTH EVERY DAY, Disp: 100 tablet, Rfl: 3 Fluticasone Furoate-Vilanterol (Breo Ellipta) 100-25 MCG/ACT aerosol powder , Inhale 1 puff in the morning., Disp: , Rfl: glucose blood (Accu-Chek Zoe Plus) test strip, 1 each by Other route in the morning and 1 each in the evening and 1 each before bedtime., Disp: 300 each, Rfl: 2 insulin aspart (NovoLOG FLEXPEN) 100 UNIT/ML pen, Inject 15 Units under the skin in the morning and 15 Units in the evening. Inject with meals. Per sliding scale., Disp: 27 mL, Rfl: 3 insulin glargine (Toujeo Max SoloStar) 300 UNIT/ML injection, Inject 60 Units under the skin at bedtime, Disp: 6 mL, Rfl: 12 rosuvastatin (Crestor) 20 MG tablet, Take 1 tablet (20 mg) by mouth Daily, Disp: 30 tablet, Rfl: 11 tiZANidine (Zanaflex) 4 MG tablet, Take 1 tablet (4 mg) by mouth in the morning and 1 tablet (4 mg) in the evening and 1 tablet (4 mg) before bedtime., Disp: 30 tablet, Rfl: 1 Allergies Patient has no known allergies. Past Surgical History Past Surgical History: Procedure Laterality Date BREAST SURGERY Right 2005 breast biopsy CARPAL TUNNEL RELEASE Bilateral 1992 SECTION, LOW TRANSVERSE x3 CHOLECYSTECTOMY 2010 DIABETES EYE EXAM 2013 NERVE BLOCK Right 10/29/2017 SI joint Family History Family History Problem Relation Name Age of Onset Diabetes Mother Vicki Heart disease Mother Vicki Cancer Father Alexia Obesity Sibling Objective General Examination: GENERAL EXAMINATION: alert and oriented. Pleasant disposition. FOOT EXAM: Date of Last Foot Exam 06/13/2024 Sensory testing performed: sensations normal Sensory and motor testing performed: strength normal Pedal pulse taking performed: 2+ Vascular: DORSALIS PEDIS PULSE: 2/4, bilaterally. POSTERIOR TIBIAL PULSE: 2/4, bilaterally. TEMPERATURE GRADIENT: warm to warm. EDEMA: unremarkable for ankle edema. CAPILLARY FILLING TIME(sec): capillary fill intact bilateral digits less than 3 secs. Neurologic: SHARP SENSATION: tactile and light touch sensation intact. SEMMES-TAWNY 5.07 MONOFILAMENT: intact localization multiple points plantarly. Dermatologic: HYPERTROPHIC LESION: None noted. No other forefoot or digital discrete keratotic pressure lesions are noted. NAIL PATHOLOGY: bilateral great toes: recalcitrant DSO/pincer toenail deformity; maintains favorable proximal nail plate clearing through the lunula areas. The margins are incurvated/cryptotic, tender, non-inflamed, without drainage. Multiple lesser digits: Varying degrees of toenail dystrophy, thickening, discoloration and clinical mycosis; central digits all demonstrate interval distinct proximal nail plate clearing. INGROWN NAIL PATHOLOGY: bilateral great toes as noted. MYCOSIS SCALE: total with debris; several digits at baseline. INTERDIGITAL MACERATION: clean, dry, non-inflamed. ULCER: no sign of ulceration or open wound. DERMATITIS: Not noted. Orthopedic: JOINT RANGE OF MOTION: functional ankle, subtalar, midtarsal and MTP joint range of motion. DEFORMITIES: no distinct forefoot or digital deformities are noted. MUSCLE STRENGTH: no focal deficits. Radiology: Assessment/Plan Symptomatic onychodystrophy/mycosis multiple digits; maintains interval improvement from baseline; status post 2nd 90 day course of oral terbinafine therapy; completed late February 2023. Chronic nummular eczema/dermatitis of the lower extremities by history. Type II diabetes/IDDM Plan: Notes: review of all clinical findings, etiology and contributing factors, differential diagnosis, aggravating factors, response to date from baseline, treatment strategy and objectives. Expresses no further interest in oral therapy at this time; generally well satisfied with progress from baseline to date. Adjunctive topical therapy: continue use vinegar and/or Listerine as directed. Diabetic education and assessment. Hygiene and skin care measures discussed. Procedure: Toenail Debridement: Aseptic technique: power/manual instrumentation: onychodebridement length and thickness, curretage of offending crypotic margins, luis-ungual debris, providing effective pressure hand symptom relief, reducing shoe and digital trauma; reducing fungal reservoir. This note was created with the assistance of a speech recognition program. While intending to generate a timely document that accurately reflects the content of the visit, no guarantee can be provided that every grammatical or spelling mistake has been or will be identified or corrected. Thank you for your understanding. Garret Chow DPM documented in this encounter [facility] 06-13-2024 Instructions Garret Chow DPM - 06/13/2024 2:15 PM EST As noted documented in this encounter [facility] Evaluation + Plan note No data available for this section [facility] Evaluation note Diagnosis Dermatophytosis of nail- Primary Dystrophic nail Other specified disease of nail Pain around toenail, right foot Pain around toenail, left foot documented in this encounter [facility] note* Diagnosis Severe obesity (BMI 35.0-39.9) with comorbidity ([facility])- Primary Type 2 diabetes mellitus with other specified complication, with long-term current use of insulin ([facility]) Primary osteoarthritis involving multiple joints Panlobular emphysema ([facility]) Other emphysema Elevated antinuclear antibody (KENDY) level Other and unspecified nonspecific immunological findings documented in this encounter [facility] note* Diagnosis Panlobular emphysema ([facility])- Primary Other emphysema Shortness of breath COVID-19 Acute cough documented in this encounter [facility] HealthcareEvaluation note* Diagnosis Type 2 diabetes mellitus with other specified complication, with long-term current use of insulin (CMS/HCC)- Primary documented in this encounter [facility]* Diagnosis Medicare annual wellness visit, subsequent- Primary [...] myelopathy Severe obesity (BMI 35.0-39.9) with comorbidity ([facility]) Depression with anxiety Dysthymic disorder Menopausal and postmenopausal disorder Unspecified menopausal and postmenopausal disorder documented in this encounter [facility] Discharge instructions No data available for this section [facility] No data available for this section [facility] Summary Purpose Family History No Family History Records FoundNo Family History Records FoundNo Family History Records FoundNo Family History Records Found Advance Directives No Advanced Directives Records FoundNo Advanced Directives Records FoundNo Advanced Directives Records FoundNo Advanced Directives Records Found Additional Source Comments INFORMATION SOURCE (unrecogn ized section and content) DATE CREATED AUTHOR 05/18/2022 [facility] DATE CREATED AUTHOR AUTHOR'S ORGANIZ ATION 04/16/2023 [facility] DATE CREATED AUTHOR AUTHOR'S ORGANIZ ATION 10/23/2024 [facility] DATE CREATED AUTHOR AUTHOR'S ORGANIZ ATION 04/14/2025 [facility] EPIC Patient Care team informatio n (unrecognized section and content) Technology Administrator Relationship Specialty Start Date End Date Grayson Albert MD [address] [place] [address] PCP - General Internal Medicine 01/07/23 Grayson Albert MD [address] [place] [address] PCP - ACO Reach 10/08/23 Kraig, Yola, AIRCRAFT MAINTENANCE TECHNICIAN [address] [place] [address] Licensed Practical Nurse Family Medicine 02/21/24 Technology Administrator Relationship Specialty Start Date End Date Grayson Albert MD [address] [place] [address] PCP - General Internal Medicine 01/07/23 Grayson Albert MD [address] [place] [address] PCP - ACO Reach 10/08/23Wednesday, Yola, AIRCRAFT MAINTENANCE TECHNICIAN [address] [place] [address] Licensed Practical Nurse Family Medicine 02/21/24 Technology Administrator Relationship Specialty Start Date End Date Grayson Albert MD [address] [place] [address] PCP - General Internal Medicine 01/07/23 Grayson Albert MD [address] [place] [address] PCP - ACO Reach 10/08/23Wednesday, Yola, AIRCRAFT MAINTENANCE TECHNICIAN [address] [place] [address] Licensed Practical Nurse Family Medicine 02/21/24 Technology Administrator Relationship Specialty Start Date End Date Grayson Albert MD [address] [place] [address] PCP - General Internal Medicine 01/07/23 Grayson Albert MD [address] [place] [address] PCP - ACO Reach 10/08/23Wednesday, Yola, AIRCRAFT MAINTENANCE TECHNICIAN [address] [place] [address] Licensed Practical Nurse Family Medicine 02/21/24 Technology Administrator Relationship Specialty Start Date End Date Grayson Albert MD [address] [place] [address] PCP - General Internal Medicine 01/07/23 Grayson Albert MD [address] [place] [address] PCP - ACO Reach 10/08/23 Ct Arceo, RN Licensed Practical Nurse Family Medicine 09/15/24 Technology Administrator Relationship Specialty Start Date End Date Grayson Albert MD [address] [place] [address] PCP - General Internal Medicine 01/07/23 Grayson Albert MD [address] [place] [address] PCP - ACO Reach 10/08/23 Ct Arceo, FÉLIX Licensed Practical Nurse Family Medicine 09/15/24 Technology Administrator Relationship Specialty Start Date End Date Grayson Albert MD [address] [place] [address] PCP - General Internal Medicine 01/07/23 Grayson Albert MD [address] [place] [address] PCP - ACO Reach 10/08/23 Ct Arceo, RN Licensed Practical Nurse Family Medicine 09/15/24 Technology Administrator Relationship Specialty Start Date End Date Grayson Albert MD [address] [place] [address] PCP - General Internal Medicine 01/07/23 Grayson Albert MD [address] [place] [address] PCP - ACO Reach 10/08/23 Meka Cardenas LPN [address] [place] [address] 10/31/24 Technology Administrator Relationship Specialty Start Date End Date Grayson Albert MD [address] [place] [address] PCP - General Internal Medicine 01/07/23 Grayson Albert MD [address] [place] [address] PCP - ACO Reach 10/08/23 Meka Cardenas LPN [address] [facility] [address] [place] [address] 10/31/24 Reason for Visit (unrecogniz ed section and content) Reason Comments [facility] Alexia Aceves is a 69 y.o. female who presents for DM Foot Care PCP: Dr. Albert 03/22/24, A1C: 8.1 BS 95:, SS: 7.5. Reason Comments Diabetes due for repeat colonoscopy Ad abn colono scopy 2013 pt declines colonoscopy Reason Comments Diabetes Med Refill Novolog-- [facility] FOR RECORDS PERTAINING TO PATIENTS WHO ARE OR HAVE BEEN ENROLLED IN A CHEMICAL DEPENDENCY/SUBSTANCEABUSE PROGRAM, SOME INFORMATION MAY BE OMITTED. This clinical summary was aggregated from multiple sources. Caution should be exercised in using it in the provision of clinical care. This summary normalizes information from multiple sources, and as a consequence, information in this document may materially change the coding, format and clinical context of patient data. In addition, data may be omitted in some cases. CLINICAL DECISIONS SHOULD BE BASED ON THE PRIMARY CLINICAL RECORDS. [facility]. provides no warranty or guarantee of the accuracy or completeness of information in this document.
== END 2025-04-17 09:54 | disposition home or self-care (01) ==
LOC: RAD 09:54
PROVIDERS: PCP Internal Medicine; Visit Provider Nurse Practitioner Family
DX: Z12.31 Encounter for screening mammogram for malignant neoplasm of breast (principal); E28.39 Other primary ovarian failure; Z80.3 Family history of malignant neoplasm of breast; Z80.8 Family history of malignant neoplasm of other organs or systems; M85.88 Other specified disorders of bone density and structure, other site
CPT/HCPCS: 77063; 77067; 77080